=== PATIENT | male | born 1950 | race Caucasian/White ===

== ENCOUNTER 2016-11-27 08:34 | Day surgery (SDC) | payer OTHER ==
[2016-11-26 16:36] VITALS: BMI 26.4
[2016-11-27] VITALS (9 sets, daily range): BP systolic 108–133; BP diastolic 50–64; PULSE 77–85; RESP 7–23; Ht 185.4 cm; Wt 87.9 kg
[~2016-11-27] VITALS: Ht 185.4 cm; Wt 87.9 kg
[2016-11-27] MEDS ORDERED: CEFAZOLIN 2 GM/50 ML (PMX) 50 ML IVPB ONE (09:00)
[2016-11-27] MEDS ORDERED: LANT3I SC (09:11)
[2016-11-27] MEDS ORDERED: ASPI-664 PO (09:11)
[2016-11-27] MEDS ORDERED: LISI10TA2 PO (09:12)
[2016-11-27] MEDS ORDERED: SIMV20TA PO (09:12)
[2016-11-27] MEDS ORDERED: AMLO-147 PO (09:12)
[2016-11-27] MEDS ORDERED: METO-407 PO (09:13)
[2016-11-27] MEDS ORDERED: CLOP75TA27 PO (09:13)
[2016-11-27 09:53] LABS: ADD SCAN DIFF NO
[2016-11-27] MEDS ORDERED: INSULIN REGULAR 10 ML INJ IV ONE (10:00)
[2016-11-27 10:04] LABS: ADD UMIC YES; UR ASCORBIC ACID NEGATIVE (NEGATIVE); UR BACTERIA FEW /HPF (NONE SEEN); UR BILIRUBIN (Dip) NEGATIVE (NEGATIVE); UR BLOOD (Dip) NEGATIVE (NEGATIVE); UR CLARITY SLIGHTLY CLOUDY (CLEAR); UR COLOR AMBER (YELLOW); UR GLUCOSE (Dip) NEGATIVE (NEGATIVE); UR KETONES (Dip) NEGATIVE (NEGATIVE); UR LEUKOCYTE ESTERASE (Dip) NEGATIVE Leu/ul (NEGATIVE); UR NITRITE (Dip) NEGATIVE (NEGATIVE); UR RBC 1 /HPF (0-5); UR SPECIFIC GRAVITY (Dip) 1.019 (1.003-1.030); UR TOTAL PROTEIN (Dip) 2+ mg/dl (NEGATIVE); UR UROBILINOGEN (Dip) 1+ mg/dL (NEGATIVE)
[2016-11-27 10:08] LABS: BASOPHILS % 0.4 % (0.0-2.0); EOSINOPHILS # 0.1 10^3/ul (0.0-0.5); EOSINOPHILS % 0.7 % (0.0-7.0); HEMOGLOBIN 10.3 g/dl (14.0-18.0); LYMPHOCYTES # 1.7 10^3/ul (0.8-2.9); LYMPHOCYTES % 17.4 % (15.0-51.0); MEAN CORPUSCULAR HEMOGLOBIN 27.2 pg (29.0-33.0); MEAN CORPUSCULAR HGB CONC 33.2 g/dl (32.0-37.0); MEAN CORPUSCULAR VOLUME 81.8 fl (82.0-101.0); MEAN PLATELET VOLUME 10.4 fl (7.4-10.4); MONOCYTE # 0.6 10^3/ul (0.3-0.9); MONOCYTES % 6.2 % (0.0-11.0); NEUTROPHIL # 7.3 10^3/ul (1.6-7.5); NEUTROPHILS % 74.8 % (39.0-77.0); PLATELET COUNT 295 10^3/UL (140-415); RED BLOOD COUNT 3.79 10^6/ul (4.70-6.10); RED CELL DISTRIBUTION WIDTH 14.9 % (11.5-14.5); WHITE BLOOD COUNT 9.7 10^3/ul (4.8-10.8)
[2016-11-27 10:19] LABS: INR 1.13; PROTIME 14.5 Sec (12.2-14.2); PT RATIO 1.1
[2016-11-27 10:27] LABS: ALBUMIN 4.4 g/dl (3.3-4.9); ALBUMIN/GLOBULIN RATIO 1.22; BILIRUBIN,INDIRECT 0.4 mg/dl (0-1.1); BILIRUBIN,TOTAL 0.4 mg/dl (0.2-1.3)
[2016-11-27 10:29] LABS: CALCIUM 8.9 mg/dl (8.4-10.2); CREATININE 1.42 mg/dl (0.61-1.24); POTASSIUM 4.5 mmol/L (3.5-5.1)
[2016-11-27] MEDS ORDERED: SOD CHLORIDE 0.9% 1,000 ML IV SCH (10:30)
--- NOTE | 2016-11-27 12:00 | HPN ---
Date/Time of Note Date/Time of Note DATE: 11/27/16 TIME: 12:00 Interval H&P Admission Note Pt. seen H&P reviewed: No system changes KHRIS FLORES DPM Nov 27, 2016 12:00
[2016-11-27] MEDS ORDERED: METOCLOPRAMIDE 10 MG INJ ONE (12:38)
[2016-11-27] MEDS ORDERED: PROPOFOL 0 ML ONE (12:38)
[2016-11-27] MEDS ORDERED: FENTAnyl 50 MCG/ML VIAL ONE (12:38)
[2016-11-27] MEDS ORDERED: MIDAZOLAM 1 MG/ML 2 ML INJ ONE (12:38)
[2016-11-27] MEDS ORDERED: PROPOFOL 40 ML ONE (12:39)
[2016-11-27] MEDS ORDERED: POLYMYXIN/BACITRACIN 1L IRRIG IRR ONE (12:45)
[2016-11-27] MEDS ORDERED: MEPERIDINE 25 MG INJ IV PRN (13:30)
[2016-11-27] MEDS ORDERED: ONDANSETRON 4 MG INJ IV PRN (13:30)
[2016-11-27] MEDS ORDERED: DIPHENHYDRAMINE 50 MG INJ IV PRN (13:30)
[2016-11-27] MEDS ORDERED: HYDROmorphONE (0.2 MG/ML) 10ML SYG IV PRN ×3 (13:30)
[2016-11-27] MEDS ORDERED: OXYCODONE/ACETAMINOPHEN (5/325) TAB PO PRN ×2 (13:30)
[2016-11-27] MEDS ORDERED: METOCLOPRAMIDE 10 MG INJ IV PRN (13:30)
[2016-11-27] MEDS ORDERED: CEFAZOLIN 1 GM INJ ONE (13:33)
--- NOTE | 2016-11-27 15:34 | RADRPT ---
PROCEDURE: XR Foot. CLINICAL INDICATION: Pain. TECHNIQUE: AP, lateral and oblique views of the right foot was obtained. COMPARISON: None. FINDINGS: Status post distal metatarsal amputation of the second through fifth metatarsal bones . Surgical dr jett in place. No fracture, dislocation or other cortical irregularity. Surgical clips overlie the distal anterior lower leg. Postoperative changes of the anterior foot soft tissues. IMPRESSION: 1. Status post amputation of second through fifth distal metatarsal bones. Surgical drain in place. Postoperative changes of the soft tissues. RPTAT:AAJJ Physician George Date Time Electronically viewed and signed by Physician George on 11/27/2016 15:33 ALECIA/
== END 2016-11-27 16:10 | disposition home or self-care (01) ==
LOC: SDS 08:34
PROVIDERS: ATTEND Podiatrist Foot & Ankle Surgery
DX: E10.52 Type 1 diabetes mellitus with diabetic peripheral angiopathy with gangrene (principal); E10.40 Type 1 diabetes mellitus with diabetic neuropathy, unspecified
CPT/HCPCS: 28805; 73630; 80053; 81001; 82962; 85025; 85610; 85730; 88305; 88311; 97605; J0690; J2250; J2765; J3010; L3260; Z7512; Z7610; J1815

== ENCOUNTER 2016-12-02 11:00 | Inpatient (IN) | payer OTHER ==
[~2016-12-02] VITALS: Ht 185.4 cm; Wt 90.4 kg
[~2016-12-02 11:00] MED LIST: AMLO-147 PO; ASPI-664 PO; CLOP75TA27 PO; LANT3I SC; LISI10TA2 PO; METO-407 PO; SIMV20TA PO
[2016-12-02] MEDS ORDERED: CLINDAMYCIN 900 MG/D5W (PMX) 50 ML IVPB STA (11:21)
[2016-12-02] MEDS ORDERED: SODIUM CHLORIDE 0.9% 1L BAG IV* STA (11:21)
[2016-12-02] MEDS ORDERED: CEFEPIME 2GM/50 ML (PMX) 50 ML IVPB STA (11:21)
[2016-12-02] MEDS ORDERED: VANCOMYCIN 1 GM (PMX) 250 ML IVPB ONE (11:30)
--- NOTE | 2016-12-02 11:43 | ERA ---
ER Documentation Chief Complaint Date/Time DATE: 12/02/16 TIME: 11:39 Chief Complaint sent by pmd for eval, lt 4th toe amputation on 11/27/16 HPI 66-year-old male history of peripheral arterial disease and diabetes who presents to the emergency room complaining of infection to a recent wound to the left foot. The patient had a recent partial amputation of the left lower extremity by Dr. Solo on Friday. He had a wound VAC. However over the last several days he has noted increasing swelling and malodorous discharge. The wound care nurse at home remove the wound VAC today and noted a second wound to the plantar surface of the foot. The patient does describe numbness and tingling to the foot but no significant pain. There is a malodorous discharge and smell from the wound. He sent a picture to Dr. Guevara, his vascular surgeon who told him to go to the emergency room. ROS All systems reviewed and are negative except as per history of present illness. Medications Home Meds Reported Medications Clopidogrel Bisulfate (Clopidogrel) 75 Mg Tablet, 75 MG PO DAILY, #30 TAB 11/27/16 Metoprolol Tartrate* (Lopressor*) 100 Mg Tablet, 100 MG PO BID, #60 TAB 11/27/16 Amlodipine Besylate* (Amlodipine Besylate*) 10 Mg Tablet, 10 MG PO DAILY, #30 TAB 11/27/16 Simvastatin* (Zocor*) 20 Mg Tablet, 20 MG PO QHS, #30 TAB 11/27/16 Lisinopril* (Lisinopril*) 10 Mg Tablet, 10 MG PO DAILY, #30 TAB 11/27/16 Insulin Glargine* (Lantus*) 100 Unit/Ml Soln, 5 UNIT SC QHS, #1 VIAL 11/27/16 Aspirin (Low Dose Aspirin) 81 Mg Tablet.dr, 81 MG PO DAILY, #30 TAB 11/27/16 Allergies Allergies: Coded Allergies: No Known Drug Allergies (Unverified Allergy, Unknown, 12/02/16) PMhx/Soc History of Surgery: Yes (CABG 11 YRS AGO, LEFT LEG BYPASS SEPTEMBER 2016, R TOE AMPUTATION) Anesthesia Reaction: No Hx Neurological Disorder: No Hx Respiratory Disorders: No Hx Cardiac Disorders: Yes (HTN,CAD) Hx Psychiatric Problems: No Hx Miscellaneous Medical Probl: Yes (LEFT FOOT GANGRENE) Hx Alcohol Use: Yes (SOCIALLY) Hx Substance Use: No Hx Tobacco Use: No FmHx Family History: diabetes Physical Exam Vitals Vital Signs Date Time Temp Pulse Resp B/P Pulse Ox O2 Delivery O2 Flow Rate FiO2 12/02/16 11:04 98.8 86 18 132/68 98 Physical Exam General: Well developed, well nourished, no acute distress Head: Normocephalic, atraumatic. Eyes: Pupils equally reactive, EOM intact ENT: Moist mucous membranes Neck: Supple, no lymphadenopathy Respiratory: Lungs clear bilaterally, no distress Cardiovascular: RRR, no murmurs, rubs, or gallops Abdominal: Soft, non-tender, non-distended, no peritoneal signs : Deferred MSK: Partial amputation near the MCP joints of the third fourth and fifth toes of the left foot with exposed subcutaneous tissue and bone with malodorous discharge, a new ulcer is noted to the plantar surface of the foot approximately 1 cm deep Neurologic: Alert and oriented, moving all extremities, normal speech, no focal weakness, no cerebellar signs Skin: As documented above Psych: Normal mood Result Diagram: 12/02/16 1130 12/02/16 1130 Results 24 hrs Laboratory Tests Test 12/02/16 11:30 12/02/16 11:40 White Blood Count 12.610^3/ul Red Blood Count 3.6710^6/ul Hemoglobin 9.8g/dl Hematocrit 30.3% Mean Corpuscular Volume 82.6fl Mean Corpuscular Hemoglobin 26.7pg Mean Corpuscular Hemoglobin Concent 32.3g/dl Red Cell Distribution Width 15.1% Platelet Count 31444^3/UL Mean Platelet Volume 10.0fl Neutrophils % 73.7% Lymphocytes % 18.0% Monocytes % 6.7% Eosinophils % 0.6% Basophils % 0.4% Nucleated Red Blood Cells % 0.0/100WBC Neutrophils # 9.310^3/ul Lymphocytes # 2.310^3/ul Monocytes # 0.810^3/ul Eosinophils # 0.110^3/ul Basophils # 0.110^3/ul Nucleated Red Blood Cells # 0.010^3/ul Prothrombin Time 14.5Sec Prothrombin Time Ratio 1.1 INR International Normalized Ratio 1.13 Activated Partial Thromboplast Time 38.6Sec Sodium Level 140mmol/L Potassium Level 4.7mmol/L Chloride Level 96mmol/L Carbon Dioxide Level 26mmol/L Anion Gap 23 Blood Urea Nitrogen 20mg/dl Creatinine 1.38mg/dl Glucose Level 137mg/dl Lactic Acid Level 2.4mmol/L Calcium Level 9.0mg/dl Total Bilirubin 0.2mg/dl Direct Bilirubin 0.00mg/dl Indirect Bilirubin 0.2mg/dl Aspartate Amino Transf (AST/SGOT) 16IU/L Alanine Aminotransferase (ALT/SGPT) 14IU/L Alkaline Phosphatase 260IU/L C-Reactive Protein 17.9mg/dl Total Protein 8.0g/dl Albumin 4.1g/dl Globulin 3.90g/dl Albumin/Globulin Ratio 1.05 Erythrocyte Sedimentation Rate 120mm/Hr Current Medications Medications (Trade) Dose Ordered Sig/Jordon Route PRN Reason Start Time Stop Time Status Last Admin Dose Admin Sodium Chloride 2950 ml 2,950 ml BOLUS OVER 2 HOURS STAT IV* 12/02/16 11:21 12/02/16 11:24 DC 12/02/16 11:45 Cefepime HCl 50 ml @ 100 mls/hr ONCE STAT IVPB 12/02/16 11:21 12/02/16 11:50 DC 12/02/16 11:45 Vancomycin HCl 250 ml @ 125 mls/hr ONCE ONCE IVPB 12/02/16 11:30 12/02/16 13:29 DC 12/02/16 13:10 Clindamycin HCl/ Dextrose (Cleocin 900 Mg/ D5W (Pmx)) 50 ml @ 50 mls/hr ONCE STAT IVPB 12/02/16 11:21 12/02/16 12:20 DC 12/02/16 12:18 Ondansetron HCl (Zofran Inj) 4 mg BRIDGE ORDER PRN IV NAUSEA AND/OR VOMITING 12/02/16 14:00 12/03/16 13:59 Acetaminophen (Tylenol Tab) 650 mg ER BRIDGE PRN PO MILD PAIN/FEVER 12/02/16 14:00 12/03/16 13:59 Procedures/MDM EKG, MONITORS, & DIAGNOSTIC IMAGING: EKG: I reviewed and interpreted a 12-lead EKG. Rhythm: Normal sinus rhythm Ectopy: None Intervals: No abnormalities ST segments: No elevations or depressions T waves: No contiguous inversions Chest x-ray: I reviewed and interpreted a 1 view of the chest Mediastinum: No enlargement Cardiac silhouette: No cardiomegaly Airspace: Clear lung barragan bilaterally without evidence of pneumothorax Bones: No evidence of fracture X-ray left foot IMPRESSION: 1. Evidence of prior transmetatarsal amputation of the second through fifth metatarsals suggesting the possibility of osteomyelitis at the fifth metatarsal stump and possibly the fourth metatarsal stump, evaluation is slightly limited if there has been recent debridement in this region. Correlation with MRI is also recommended depending on the degree of clinical concern. 2. Soft tissue defect over the stumps and also suggestion of a plantar ulcer at the midfoot and possible subcutaneous air. 3. Atherosclerotic vascular calcifications. RPTAT: TT LAB INTERPRETATION: Leukocytosis and isolated lactic acid, mild renal insufficiency MEDICAL DECISION MAKING: The patient presents with what appears to be infected left foot status post surgical intervention on Friday. The patient has malodorous discharge and drainage and a new ulceration to the foot. This is concerning for poor healing wound likely secondary to the patient's diabetes and peripheral arterial disease. The patient will benefit from cultures, broad-spectrum antibiotics and inpatient hospitalization. ESR, CRP, x-ray will also be initiated though high likelihood of osteomyelitis given recent amputation. ER COURSE: Patient given 30 cc/kg bolus of saline he was given vancomycin, Zosyn, clindamycin. Blood cultures and wound culture collected. Dr. Solo and Dr. Crowder notified. The patient only has 1 out of 4 Sirs criteria therefore this is not consistent with sepsis or severe sepsis. The patient has an isolated lactic acid elevation likely secondary to infection. Regardless, the patient received appropriate fluid bolus, broad-spectrum antibiotics. He does not require repeat volume assessment given that he does not meet severe sepsis or septic shock criteria. The patient is stable and will benefit from medical surgical admission. I kept the patient and/or family informed of laboratory and diagnostic imaging results throughout the emergency room course. DISPOSITION PLAN: Medical surgical admission for infected left foot wound. CONSULTATION: Accepting care team and consultations: I discussed the current laboratory data, diagnostic imaging and emergency care provided. Admitting team: Dr. Adamson Admitting team indication: Insurance directed Consulting services: Podiatry Dr. Solo, vascular surgery Dr. Crowder notified. Departure Diagnosis: Primary Impression: Left foot infection Additional Impressions: Wound infection Lactic acidosis Osteomyelitis of left foot Qualified Code: M86.9 - Osteomyelitis of left foot, unspecified type Condition: BOB Dobbs MD Dec 02, 2016 11:43
[2016-12-02 11:49] LABS: ADD SCAN DIFF NO
--- NOTE | 2016-12-02 12:08 | RADRPT ---
PROCEDURE: XR Chest. CLINICAL INDICATION: Cough. Sepsis. TECHNIQUE: Single frontal view. COMPARISON: None. FINDINGS: The lungs are clear. The heart size is normal. There are sternal wires and mediastinal clips. There is no pleural effusion. There is no pneumothorax. IMPRESSION: 1. Previous median sternotomy. 2. Otherwise normal chest x-ray. RPTAT: QQ .Curry Bobo MD, MD Date Time Electronically viewed and signed by .Curry Bobo MD, MD on 12/02/2016 12:08 .R/
[2016-12-02 12:09] LABS: INR 1.13; PROTIME 14.5 Sec (12.2-14.2); PT RATIO 1.1
[2016-12-02 12:10] LABS: PARTIAL THROMBOPLASTIN TIME 38.6 Sec (25.0-35.0)
[2016-12-02 12:15] LABS: ALBUMIN 4.1 g/dl (3.3-4.9); ALBUMIN/GLOBULIN RATIO 1.05; BILIRUBIN,INDIRECT 0.2 mg/dl (0-1.1); BILIRUBIN,TOTAL 0.2 mg/dl (0.2-1.3); CREATININE 1.38 mg/dl (0.61-1.24); POTASSIUM 4.7 mmol/L (3.5-5.1)
[2016-12-02 12:19] LABS: BASOPHIL # 0.1 10^3/ul (0.0-0.1); BASOPHILS % 0.4 % (0.0-2.0); EOSINOPHILS # 0.1 10^3/ul (0.0-0.5); EOSINOPHILS % 0.6 % (0.0-7.0); HEMATOCRIT 30.3 % (42.0-52.0); HEMOGLOBIN 9.8 g/dl (14.0-18.0); LYMPHOCYTES # 2.3 10^3/ul (0.8-2.9); MEAN CORPUSCULAR HEMOGLOBIN 26.7 pg (29.0-33.0); MEAN CORPUSCULAR HGB CONC 32.3 g/dl (32.0-37.0); MEAN CORPUSCULAR VOLUME 82.6 fl (82.0-101.0); MONOCYTE # 0.8 10^3/ul (0.3-0.9); MONOCYTES % 6.7 % (0.0-11.0); NEUTROPHIL # 9.3 10^3/ul (1.6-7.5); NEUTROPHILS % 73.7 % (39.0-77.0); PLATELET COUNT 329 10^3/UL (140-415); RED BLOOD COUNT 3.67 10^6/ul (4.70-6.10); RED CELL DISTRIBUTION WIDTH 15.1 % (11.5-14.5); WHITE BLOOD COUNT 12.6 10^3/ul (4.8-10.8)
--- NOTE | 2016-12-02 12:39 | RADRPT ---
PROCEDURE: XR Foot. CLINICAL INDICATION: Foot pain. Possible sepsis TECHNIQUE: Three views of the left foot are available for review. COMPARISON: 11/27/2016. FINDINGS: The wound vac has been removed. The patient has undergone prior transmetatarsal amputation at the s econd through fifth rays. Lucency and cortical irregularity seen at the fifth metatarsal stump and to a lesser extent at the fourth metatarsal stump suggesting the possibility of osteomyelitis. The remaining sinuses demonstrate grossly intact cortical surfaces. There is a soft tissue defect over t he stump as well. Atherosclerotic vascular calcifications are present. There is a small amount of low density foci in the plantar soft tissues, subcutaneous air cannot be excluded. There is also a possible ulcer plantarly. Surgical clips are seen about the foot. There is marked soft tissue swell ing. IMPRESSION: 1. Evidence of prior transmetatarsal amputation of the second through fifth metatarsals suggesting the possibility of osteomyelitis at the fifth metatarsal stump and possibly the fourth metatarsal st ump, evaluation is slightly limited if there has been recent debridement in this region. Correlation with MRI is also recommended depending on the degree of clinical concern. 2. Soft tissue defect over the stumps and also suggestion of a plantar ulcer at the midfoot and pos sible subcutaneous air. 3. Atherosclerotic vascular calcifications. RPTAT: TT .Aj Shaw MD, Date Time Electronically viewed and signed by .Aj Shaw MD, on 12/02/2016 12:39 .d/
[2016-12-02 12:57] LABS: C-REACTIVE PROTEIN 17.9 mg/dl (0.0-0.9)
[2016-12-02] MEDS ORDERED: ACETAMINOPHEN 325 MG TAB PO PRN ×2 (14:00→15:30)
[2016-12-02] MEDS ORDERED: ONDANSETRON 4 MG INJ IV PRN ×2 (14:00→15:30)
[2016-12-02] MEDS ORDERED: ZOLPIDEM 5 MG TAB PO PRN (15:30)
[2016-12-02] MEDS ORDERED: NACL 0.9% 3 ML SYG IV SCH (15:30)
[2016-12-02] MEDS ORDERED: morphine 2 MG INJ IV PRN (15:30)
[2016-12-02] MEDS: SOD CHLORIDE 0.9% 1,000 ML IV SCH (15:52)
[2016-12-02] MEDS ORDERED: GLUCOSE GEL 15 GRAM TUBE BUCCAL PRN (16:00)
[2016-12-02] MEDS ORDERED: GLUCAGON 1 MG INJ IM PRN (16:00)
[2016-12-02] MEDS ORDERED: DEXTROSE 50% 50 ML SYRINGE IV PRN ×2 (16:00)
[2016-12-02] MEDS ORDERED: GLUCOSE GEL 15 GRAM TUBE PO PRN ×2 (16:00)
[2016-12-02 16:08] VITALS: TEMP 98.7
[2016-12-02 16:15] VITALS: BP 140/63; PULSE 93; RESP 16
--- NOTE | 2016-12-02 17:40 | HP ---
Date/Time of Note Date/Time of Note DATE: 12/02/16 TIME: 17:33 Assessment/Plan VTE Prophylaxis VTE Prophylaxis Intervention: contraindicated VTE Contraindication Reason: peripheral vascular disease Assessment/Plan Chief Complaint/Hosp Course Assessment and plan 1. Left lower extremity gangrene vs abscess. Stable consult podiatry and vascular surgery. 2. Left foot DFI. Restart wound care/wound VAC when ok w podiatry 3. Chr PAD; ho bypass. Continue risk factor modification, aspirin 4. Chr CAD/ old DC?/ CABG status. Stable continue risk factor modification 5. Deconditioning; PT nwb left foot 6. Chr Dm/metabolic syndrome 7. Ckd 8. Rt second toe amputation status Problems: HPI/ROS Admit Date/Time Admit Date/Time Dec 02, 2016 at 13:33 Hx of Present Illness 66-year-old gentleman who had surgery last week on his left leg. Had home health and wound VAC therapy. This morning wound care eval was done at home. Wound VAC was being changed. Unfortunately his wound appears to have more foul- smelling discharge. No evidence of toxicity sepsis. ER: Stable vital signs. ROS Constitutional: no complaints Respiratory: cough (Chronic nonproductive) Cardiovascular: no complaints Gastrointestinal: other (Possible constipation. Last BM with diarrhea a few days ago.) Genitourinary: no complaints Musculoskeletal: other (Left leg with foul-smelling discharge. No change in moderate pain. No edema.) Neurologic: no complaints Endocrine: no complaints, other (Chronic diabetes/dyslipidemia/metabolic syndrome) Psychological: no complaints Additional Comments No hematochezia melena hematuria PMH/Family/Social Past Medical History Cataracts Diabetic foot infection PAD status post angioplasty Right second toe infection amputation status Chronic kidney disease Medical History: coronary artery disease (Possible old DC status. Positive CABG), diabetes, hypertension, other (Left carotid stenosis) Past Surgical History Cataract Past Surgical Hx: coronary bypass surgery, other (Carotid left) Family History Significant Family History: other (No history of early coronary artery disease or stroke) Social History Alcohol Use: none Smoking Status: Never smoker Exam/Review of Systems Vital Signs Vitals Vital Signs Date Time Temp Pulse Resp B/P Pulse Ox O2 Delivery O2 Flow Rate FiO2 12/02/16 16:08 98.7 80 18 145/74 98 Room Air Labs Result Diagram: 12/02/16 1130 12/02/16 1130 Medications Medications Current Medications Aspirin (Halfprin) 81 mg DAILY PO ; Start 12/03/16 at 09:00 Clopidogrel Bisulfate (plaVIX) 75 mg DAILY PO ; Start 12/03/16 at 09:00 Insulin Glargine (Lantus) 5 unit QHS SC ; Start 12/02/16 at 21:00 Atorvastatin Calcium 10 mg 10 mg DAILY@21 PO ; Start 12/02/16 at 21:00 Sodium Chloride (NS) 1,000 ml @ 100 mls/hr Q10H IV Last administered on t 15:52; Admin Dose 100 MLS/HR; Start 12/02/16 at 15:13 Ondansetron HCl (Zofran Inj) 4 mg Q6H PRN IV NAUSEA AND/OR VOMITING; Start 12/02 at 15:30 Acetaminophen (Tylenol Tab) 650 mg Q6H PRN PO PAIN LEVEL 1-3 OR FEVER; Start at 15:30 Oxycodone/ Acetaminophen (Percocet (5/ 325)) 1 tab Q6H PRN PO MODERATE PAIN LEVEL 4-6; Start 12/02/16 at 15:30 Morphine Sulfate (morphine) 2 mg Q4H PRN IV SEVERE PAIN LEVEL 7-10; Start at 15:30 Docusate Sodium (Colace) 100 mg Q12H PRN PO CONSTIPATION; Start 12/02/16 at 15: 30 Zolpidem Tartrate (Ambien) 5 mg QHS PRN PO SLEEP; Start 12/02/16 at 15:30 Famotidine (Pepcid) 20 mg Q12 PO ; Start 12/02/16 at 21:00 Miscellaneous Information 1 ea NOTE XX ; Start 12/02/16 at 16:00 Glucose (Glutose) 15 gm Q15M PRN PO DECREASED GLUCOSE; Start 12/02/16 at 16:00 Glucose (Glutose) 22.5 gm Q15M PRN PO DECREASED GLUCOSE; Start 12/02/16 at 16:00 Dextrose (D50w Syringe) 25 ml Q15M PRN IV DECREASED GLUCOSE; Start 12/02/16 at 16:00 Dextrose (D50w Syringe) 50 ml Q15M PRN IV DECREASED GLUCOSE; Start 12/02/16 at 16:00 Glucagon (Glucagen) 1 mg Q15M PRN IM DECREASED GLUCOSE; Start 12/02/16 at 16:00 Glucose (Glutose) 15 gm Q15M PRN BUCCAL DECREASED GLUCOSE; Start 12/02/16 at 16: 00 NIMA ROD MD Dec 02, 2016 17:39
[2016-12-02] MEDS ORDERED: VANCOMYCIN IV PER PHARMACY XX SCH (18:00)
[2016-12-02] MEDS ORDERED: ALBUTEROL 18 GM INHALER INH PRN (18:00)
[2016-12-02] MEDS: POLYETHYLENE GLYCOL 17 GM PACKET PO SCH (18:14)
[2016-12-02] MEDS: OXYCODONE/ACETAMINOPHEN (5/325) TAB PO PRN (18:22)
[2016-12-02] MEDS: INSULIN ASPART [NOVOLOG] 3 ML PEN SC SCH ×2 (18:25→20:49)
[2016-12-02] MEDS: FAMOTIDINE 20 MG TAB PO SCH (20:41)
[2016-12-02] MEDS: LACTOBACILLUS RHAMNOSUS CAP PO SCH (20:41)
[2016-12-02] MEDS: ATORVASTATIN 10 MG TAB PO SCH (20:41)
[2016-12-02] MEDS: FERROUS SULFATE (EC) 325 MG TAB PO SCH (20:41)
[2016-12-02 20:48] VITALS: BP 129/60; RESP 18
[2016-12-02] MEDS: CEFEPIME 2GM/50 ML (PMX) 50 ML IVPB SCH (20:52)
[2016-12-02] MEDS: INSULIN GLARGINE [LANtus] 3 ML PEN SC SCH (20:52)
[2016-12-02] MEDS ORDERED: FAMOTIDINE 20 MG TAB PO SCH (21:00)
[2016-12-02] MEDS ORDERED: VANCOMYCIN 750 MG in SOD CHLORIDE 0.9% 150 ML IVPB SCH (22:00)
[2016-12-03 02:42] VITALS: Ht 185.4 cm; Wt 90.4 kg
[2016-12-03 04:58] LABS: ADD SCAN DIFF NO
[2016-12-03 05:02] LABS: BASOPHILS % 0.4 % (0.0-2.0); EOSINOPHILS # 0.1 10^3/ul (0.0-0.5); EOSINOPHILS % 1.4 % (0.0-7.0); HEMATOCRIT 26.5 % (42.0-52.0); HEMOGLOBIN 8.4 g/dl (14.0-18.0); LYMPHOCYTES # 1.6 10^3/ul (0.8-2.9); LYMPHOCYTES % 15.8 % (15.0-51.0); MEAN CORPUSCULAR HEMOGLOBIN 25.8 pg (29.0-33.0); MEAN CORPUSCULAR HGB CONC 31.7 g/dl (32.0-37.0); MEAN CORPUSCULAR VOLUME 81.3 fl (82.0-101.0); MEAN PLATELET VOLUME 9.8 fl (7.4-10.4); MONOCYTE # 0.6 10^3/ul (0.3-0.9); MONOCYTES % 6.3 % (0.0-11.0); NEUTROPHIL # 7.4 10^3/ul (1.6-7.5); NEUTROPHILS % 75.5 % (39.0-77.0); PLATELET COUNT 272 10^3/UL (140-415); RED BLOOD COUNT 3.26 10^6/ul (4.70-6.10); RED CELL DISTRIBUTION WIDTH 15.4 % (11.5-14.5); WHITE BLOOD COUNT 9.8 10^3/ul (4.8-10.8)
[2016-12-03 05:26] LABS: IRON 10 ug/dl (35-150)
[2016-12-03 05:29] LABS: ALBUMIN 3.3 g/dl (3.3-4.9); BILIRUBIN,INDIRECT 0.1 mg/dl (0-1.1); BILIRUBIN,TOTAL 0.1 mg/dl (0.2-1.3); CALCIUM 8.2 mg/dl (8.4-10.2); CHOL/HDL RATIO 4.3 RATIO; CREATININE 1.22 mg/dl (0.61-1.24); MAGNESIUM 1.9 mg/dl (1.7-2.5); PHOSPHORUS 3.2 mg/dl (2.5-4.9); POTASSIUM 4.3 mmol/L (3.5-5.1); TOTAL PROTEIN 6.6 g/dl (6.1-8.1)
[2016-12-03 05:36] LABS: TOTAL IRON BINDING CAPACITY 116 ug/dl (241-421)
[2016-12-03] MEDS: SOD CHLORIDE 0.9% 1,000 ML IV SCH ×4 (05:49→22:10)
[2016-12-03 05:59] LABS: THYROID STIMULATING HORMONE 7.13 MIU/L (0.465-4.680)
[2016-12-03] MEDS: INSULIN ASPART [NOVOLOG] 3 ML PEN SC SCH ×4 (07:44→20:40)
[2016-12-03 08:03] VITALS: BP 155/72; RESP 18
[2016-12-03] MEDS: ASPIRIN (EC) 81 MG TAB PO SCH (08:29)
[2016-12-03] MEDS: LACTOBACILLUS RHAMNOSUS CAP PO SCH ×2 (08:29→20:36)
[2016-12-03] MEDS: FERROUS SULFATE (EC) 325 MG TAB PO SCH ×2 (08:29→20:36)
[2016-12-03] MEDS: CLOPIDOGREL 75 MG TAB PO SCH (08:29)
[2016-12-03] MEDS: POLYETHYLENE GLYCOL 17 GM PACKET PO SCH (08:30)
[2016-12-03] MEDS: COLLAGENASE 30 GM TUBE TOP SCH (08:31)
[2016-12-03] MEDS: CEFEPIME 2GM/50 ML (PMX) 50 ML IVPB SCH ×2 (08:32→20:35)
[2016-12-03] MEDS ORDERED: PENDING SANTYL ORDER FOR WOUND CARE XX PRN (09:00)
--- NOTE | 2016-12-03 10:18 | RADRPT ---
PROCEDURE: XR Chest. CLINICAL INDICATION: Preop infected foot wound TECHNIQUE: PA and Lateral views of the chest were obtained. COMPARISON: 12/02/2016 FINDINGS: The heart is not enlarged. Calcification in the aortic arch. The patient is likely status post CAB G with sternal wires and small epicardial pacing leads present. ECG leads projected over the chest. There is minimal prominence of the lung interstitium likely minimal chronic changes. Likely minimal left apical pleuroparenchymal fibrotic change. No signs of pleural fluid or pneumothorax are seen. T he osseous structures and soft tissues are unremarkable. IMPRESSION: No evidence for active cardiopulmonary disease. Please see above. RPTAT: HJES .Ronan Duran MD, MD Date Time Electronically viewed and signed by .Ronan Duran MD, on 12/03/2016 10:18 .S/
[2016-12-03] MEDS: VANCOMYCIN 1 GM in NS 250 ML IVPB SCH ×2 (10:22→22:10)
--- NOTE | 2016-12-03 10:37 | PN ---
Date/Time of Note Date/Time of Note DATE: 12/03/16 TIME: 10:35 Assessment/Plan VTE Prophylaxis VTE Prophylaxis Intervention: LMWH Assessment/Plan Chief Complaint/Hosp Course Subjective: No events Objective: Vital signs stable Physical exam No pallor Reg Clear Benign No edema. Probable neuropathy. Rt heel C/D/I A/P: 1. Lt lwr ext gangrene vs abscess. Stable consulted podiatry and vascular surgery. 2. Lt foot DFI. Restart wound care/wound VAC when ok w podiatry 3. Chr PAD; ho bypass. Cont risk factor modification, asa? 4. Chr CAD/ old AL?/ CABG status. Stable cont risk factor modification 5. Deconditioning; PT nwb left foot 6. Chr Dm/metabolic syndrome 7. Ckd 8. Rt second toe amputation status 9. Iron deficiency anemia, start iron 10. Hypothyroidism, start treatment Problems: Exam/Review of Systems Vital Signs Vitals Vital Signs Date Time Temp Pulse Resp B/P Pulse Ox O2 Delivery O2 Flow Rate FiO2 12/03/16 08:03 98.6 88 18 155/72 93 12/02/16 16:15 Room Air Intake and Output 12/02/16 12/02/16 12/03/16 15:00 23:00 07:00 Intake Total 3050 ml 300 ml 1470 ml Output Total 1000 ml Balance 3050 ml 300 ml 470 ml Results Result Diagram: 12/03/16 0415 12/03/16 0415 Results 24 hrs Laboratory Tests Test 12/02/16 11:30 12/02/16 11:40 12/02/16 13:21 12/02/16 15:20 White Blood Count 12.6 #H Red Blood Count 3.67 L Hemoglobin 9.8 L Hematocrit 30.3 L Mean Corpuscular Volume 82.6 Mean Corpuscular Hemoglobin 26.7 L Mean Corpuscular Hemoglobin Concent 32.3 Red Cell Distribution Width 15.1 H Platelet Count 329 Mean Platelet Volume 10.0 Neutrophils % 73.7 Lymphocytes % 18.0 Monocytes % 6.7 Eosinophils % 0.6 Basophils % 0.4 Nucleated Red Blood Cells % 0.0 Neutrophils # 9.3 H Lymphocytes # 2.3 Monocytes # 0.8 Eosinophils # 0.1 Basophils # 0.1 Nucleated Red Blood Cells # 0.0 Prothrombin Time 14.5 H Prothrombin Time Ratio 1.1 INR International Normalized Ratio 1.13 Activated Partial Thromboplast Time 38.6 H Sodium Level 140 Potassium Level 4.7 Chloride Level 96 L Carbon Dioxide Level 26 Anion Gap 23 H Blood Urea Nitrogen 20 Creatinine 1.38 H Glucose Level 137 Lactic Acid Level 2.4 H 2.6 H 1.6 Calcium Level 9.0 Total Bilirubin 0.2 Direct Bilirubin 0.00 Indirect Bilirubin 0.2 Aspartate Amino Transf (AST/SGOT) 16 Alanine Aminotransferase (ALT/SGPT) 14 Alkaline Phosphatase 260 H C-Reactive Protein 17.9 H Total Protein 8.0 Albumin 4.1 Globulin 3.90 H Albumin/Globulin Ratio 1.05 Erythrocyte Sedimentation Rate 120 H Test 12/02/16 17:35 12/02/16 20:43 12/03/16 03:36 12/03/16 04:15 Bedside Glucose 158 201 176 White Blood Count 9.8 # Red Blood Count 3.26 L Hemoglobin 8.4 L Hematocrit 26.5 L Mean Corpuscular Volume 81.3 L Mean Corpuscular Hemoglobin 25.8 L Mean Corpuscular Hemoglobin Concent 31.7 L Red Cell Distribution Width 15.4 H Platelet Count 272 Mean Platelet Volume 9.8 Neutrophils % 75.5 Lymphocytes % 15.8 Monocytes % 6.3 Eosinophils % 1.4 Basophils % 0.4 Nucleated Red Blood Cells % 0.0 Neutrophils # 7.4 Lymphocytes # 1.6 Monocytes # 0.6 Eosinophils # 0.1 Basophils # 0.0 Nucleated Red Blood Cells # 0.0 Sodium Level 136 Potassium Level 4.3 Chloride Level 99 Carbon Dioxide Level 22 Anion Gap 19 H Blood Urea Nitrogen 17 Creatinine 1.22 Glucose Level 168 Hemoglobin A1c 9.1 H Calcium Level 8.2 L Phosphorus Level 3.2 Magnesium Level 1.9 Iron Level 10 L Total Iron Binding Capacity 116 L Percent Iron Saturation 9 L Ferritin 398.0 H Total Bilirubin 0.1 L Direct Bilirubin 0.00 Indirect Bilirubin 0.1 Aspartate Amino Transf (AST/SGOT) 13 L Alanine Aminotransferase (ALT/SGPT) 17 Alkaline Phosphatase 209 H Total Protein 6.6 # Albumin 3.3 Globulin 3.30 H Albumin/Globulin Ratio 1.00 Triglycerides Level 87 Cholesterol Level 79 L LDL Cholesterol, Calculated 44 HDL Cholesterol 18 L Cholesterol/HDL Ratio 4.3 Thyroid Stimulating Hormone (TSH) 7.130 H Test 12/03/16 07:41 Bedside Glucose 178 Medications Medications Current Medications Aspirin (Halfprin) 81 mg DAILY PO Last administered on 12/03/16 08:29; Admin Dose 81 MG; Start 12/03/16 at 09:00 Clopidogrel Bisulfate (plaVIX) 75 mg DAILY PO Last administered on 12/03/16 08: 29; Admin Dose 75 MG; Start 12/03/16 at 09:00 Insulin Glargine (Lantus) 5 unit QHS SC Last administered on 12/02/16 20:52; Admin Dose 5 UNIT; Start 12/02/16 at 21:00 Atorvastatin Calcium 10 mg 10 mg DAILY@21 PO Last administered on 12/02/16 20: 41; Admin Dose 10 MG; Start 12/02/16 at 21:00 Sodium Chloride (NS) 1,000 ml @ 100 mls/hr Q10H IV Last administered on 05:49; Admin Dose 100 MLS/HR; Start 12/02/16 at 15:13 Ondansetron HCl (Zofran Inj) 4 mg Q6H PRN IV NAUSEA AND/OR VOMITING; Start 12/02 at 15:30 Acetaminophen (Tylenol Tab) 650 mg Q6H PRN PO PAIN LEVEL 1-3 OR FEVER; Start at 15:30 Oxycodone/ Acetaminophen (Percocet (5/ 325)) 1 tab Q6H PRN PO MODERATE PAIN LEVEL 4-6 Last administered on 12/02/16 18:22; Admin Dose 1 TAB; Start 12/02/16 at 15:30 Morphine Sulfate (morphine) 2 mg Q4H PRN IV SEVERE PAIN LEVEL 7-10; Start at 15:30 Docusate Sodium (Colace) 100 mg Q12H PRN PO CONSTIPATION; Start 12/02/16 at 15: 30 Zolpidem Tartrate (Ambien) 5 mg QHS PRN PO SLEEP; Start 12/02/16 at 15:30 Miscellaneous Information 1 ea NOTE XX ; Start 12/02/16 at 16:00 Glucose (Glutose) 15 gm Q15M PRN PO DECREASED GLUCOSE; Start 12/02/16 at 16:00 Glucose (Glutose) 22.5 gm Q15M PRN PO DECREASED GLUCOSE; Start 12/02/16 at 16:00 Dextrose (D50w Syringe) 25 ml Q15M PRN IV DECREASED GLUCOSE; Start 12/02/16 at 16:00 Dextrose (D50w Syringe) 50 ml Q15M PRN IV DECREASED GLUCOSE; Start 12/02/16 at 16:00 Glucagon (Glucagen) 1 mg Q15M PRN IM DECREASED GLUCOSE; Start 12/02/16 at 16:00 Glucose (Glutose) 15 gm Q15M PRN BUCCAL DECREASED GLUCOSE; Start 12/02/16 at 16: 00 Famotidine (Pepcid) 20 mg HS PO Last administered on 12/02/16 20:41; Admin Dose 20 MG; Start 12/02/16 at 21:00 Ferrous Sulfate 325 mg 325 mg BID PO Last administered on 12/03/16 08:29; Admin Dose 325 MG; Start 12/02/16 at 21:00 Cefepime HCl (Maxipime 2gm/50 ml (Pmx)) 50 ml @ 100 mls/hr Q12 IVPB Last administered on 12/03/16 08:32; Admin Dose 100 MLS/HR; Start 12/02/16 at 21:00 Lactobacillus Acidophilus/ Rhamnosus (Culturelle) 1 cap BID PO Last administered on 12/03/16 08:29; Admin Dose 1 CAP; Start 12/02/16 at 21:00 Polyethylene Glycol (Miralax) 17 gm DAILY PO Last administered on 12/03/16 08: 30; Admin Dose 17 GM; Start 12/02/16 at 18:00 Collagenase 1 applic 1 applic DAILY TOP Last administered on 12/03/16 08:31; Admin Dose 1 APPLIC; Start 12/03/16 at 09:00 Vancomycin HCl (Vancocin) 250 ml @ 125 mls/hr Q12H IVPB Last administered on 10:22; Admin Dose 125 MLS/HR; Start 12/03/16 at 10:00 NIMA ROD MD Dec 03, 2016 10:36
[2016-12-03] MEDS: SOD FERRIC GLUC COMPLX 125 MG in SOD CHLORIDE 0.9% 100 ML IVPB SCH ×3 (11:00→12:41)
--- NOTE | 2016-12-03 12:36 | CONS ---
Date/Time of Note Date/Time of Note DATE: 12/03/16 TIME: 12:33 Assessment/Plan Assessment/Plan Problems: (1) Peripheral vascular disease (2) Lower extremity edema (3) Toe gangrene (4) Lactic acidosis Status: Acute (5) Wound infection Status: Acute (6) Osteomyelitis of left foot Status: Acute Qualifiers: Qualified Code: M86.9 - Osteomyelitis of left foot, unspecified type (7) Left foot infection Status: Acute Additional Assessment/Plan This is a 66-year-old male patient with a recent amputation of the left second through fifth toes and metatarsal head resections; open amputation with application of wound VAC. Patient's prognosis is guarded. 1. Patient will be scheduled for surgical debridement of the left foot and exploration of new wound on the plantar aspect of the left foot 2. Patient to continue to have Santyl ointment with daily dressing changes 3. Hold wound VAC application at this time 4. Nonweightbearing left foot Patient will be followed in-house. Thank you again for involving me in the care of this patient. If you have any questions regarding this case, please feel free to contact me at pager: or reach me at mobile: [phone]. Consultation Date/Type/Reason Admit Date/Time Dec 02, 2016 at 13:33 Date of Consultation: Dec 03, 2016 Type of Consultation: Foot and ankle surgery Reason for Consultation Evaluation left foot open wound Hx of Present Illness Thank you very much for involving me in the care of this patient. As you very well know, this is a 66-year-old male patient who was admitted to the hospital for left foot open wound. Past medical history is significant for recent amputation of the second through the fifth toes, peripheral vascular disease, diabetes mellitus, peripheral neuropathy, previous left foot gangrene. I was consulted to evaluate and treat possible infected open wound of the left foot. Patient reports that yesterday as the home nurse was changing the wound VAC, she noticed that there is a new wound on the bottom of the left foot and she got concerned. Patient contacted his vascular surgeon who told him to go to the emergency room to be admitted to the hospital. Patient is currently on IV antibiotics and the wound VAC has been removed. Patient denies any pain, denies fever, chills nausea or vomiting. Constitutional: improved, no complaints Eyes: no complaints ENT: no complaints Respiratory: cough (Chronic nonproductive) Cardiovascular: no complaints Gastrointestinal: other (Possible constipation. Last BM with diarrhea a few days ago.) Genitourinary: no complaints Musculoskeletal: other (Left leg with foul-smelling discharge. No change in moderate pain. No edema.) Neurologic: no complaints Psychological: no complaints Past Medical History As per history of present illness. Medical History: coronary artery disease (Possible old [place] status. Positive CABG), diabetes, hypertension, other (Left carotid stenosis) Past Surgical History As per history of present illness. Past Surgical Hx: coronary bypass surgery, other (Carotid left) Social History As per history of present illness. Alcohol Use: none Smoking Status: Never smoker Exam/Review of Systems Vital Signs Vitals Vital Signs Date Time Temp Pulse Resp B/P Pulse Ox O2 Delivery O2 Flow Rate FiO2 12/03/16 08:03 98.6 88 18 155/72 93 12/02/16 16:15 Room Air Intake and Output 12/02/16 12/02/16 12/03/16 15:00 23:00 07:00 Intake Total 3050 ml 300 ml 1470 ml Output Total 1000 ml Balance 3050 ml 300 ml 470 ml Exam General appearance: Patient is well developed; appears to be in no acute distress sitting comfortably in the exam chair. Gait is antalgic Vascular exam: Pedal pulses: weakly palpable bilateral feet; CFT: Normal on right foot toes; status post second through the fifth toe amputation on the left foot; TG: normal bilateral lower extremity; Edema: There is edema of the left foot noted; VV: none noted on exam Neurological exam: Protective sensation is diminished to sharp, dull, vibratory and temperature stimuli bilaterally. Deep tendon reflexes are normal bilaterally. Negative Tinel sign Dermatological exam: Open wound present from surgery on the left foot involving the second through the fifth metatarsal areas. Second open wound present on the plantar left foot measuring 5 mm in diameter. There is no erythema noted and no pus or bleeding present. Malodor noted. There is necrotic tissue at the base of the amputation site. Skin flap noted from the dorsal aspect of the previous second toe which appears to be viable. No erythema noted on lower extremity exam Musculoskeletal exam: Status post amputation of second through fifth toes and second through fifth metatarsal heads, open amputation. Muscle power is 5/5 bilateral lower extremity Imaging: Imaging reviewed Results Result Diagram: 12/03/16 0415 12/03/16 0415 Results 24 hrs Laboratory Tests Test 12/02/16 13:21 12/02/16 15:20 12/02/16 17:35 12/02/16 20:43 Lactic Acid Level 2.6 H 1.6 Bedside Glucose 158 201 Test 12/03/16 03:36 12/03/16 04:15 12/03/16 07:41 12/03/16 11:51 Bedside Glucose 176 178 237 H White Blood Count 9.8 # Red Blood Count 3.26 L Hemoglobin 8.4 L Hematocrit 26.5 L Mean Corpuscular Volume 81.3 L Mean Corpuscular Hemoglobin 25.8 L Mean Corpuscular Hemoglobin Concent 31.7 L Red Cell Distribution Width 15.4 H Platelet Count 272 Mean Platelet Volume 9.8 Neutrophils % 75.5 Lymphocytes % 15.8 Monocytes % 6.3 Eosinophils % 1.4 Basophils % 0.4 Nucleated Red Blood Cells % 0.0 Neutrophils # 7.4 Lymphocytes # 1.6 Monocytes # 0.6 Eosinophils # 0.1 Basophils # 0.0 Nucleated Red Blood Cells # 0.0 Sodium Level 136 Potassium Level 4.3 Chloride Level 99 Carbon Dioxide Level 22 Anion Gap 19 H Blood Urea Nitrogen 17 Creatinine 1.22 Glucose Level 168 Hemoglobin A1c 9.1 H Calcium Level 8.2 L Phosphorus Level 3.2 Magnesium Level 1.9 Iron Level 10 L Total Iron Binding Capacity 116 L Percent Iron Saturation 9 L Ferritin 398.0 H Total Bilirubin 0.1 L Direct Bilirubin 0.00 Indirect Bilirubin 0.1 Aspartate Amino Transf (AST/SGOT) 13 L Alanine Aminotransferase (ALT/SGPT) 17 Alkaline Phosphatase 209 H Total Protein 6.6 # Albumin 3.3 Globulin 3.30 H Albumin/Globulin Ratio 1.00 Triglycerides Level 87 Cholesterol Level 79 L LDL Cholesterol, Calculated 44 HDL Cholesterol 18 L Cholesterol/HDL Ratio 4.3 Thyroid Stimulating Hormone (TSH) 7.130 H Medications Medications Current Medications Aspirin (Halfprin) 81 mg DAILY PO Last administered on 12/03/16 08:29; Admin Dose 81 MG; Start 12/03/16 at 09:00 Clopidogrel Bisulfate (plaVIX) 75 mg DAILY PO Last administered on 12/03/16 08: 29; Admin Dose 75 MG; Start 12/03/16 at 09:00 Insulin Glargine (Lantus) 5 unit QHS SC Last administered on 12/02/16 20:52; Admin Dose 5 UNIT; Start 12/02/16 at 21:00 Atorvastatin Calcium 10 mg 10 mg DAILY@21 PO Last administered on 12/02/16 20: 41; Admin Dose 10 MG; Start 12/02/16 at 21:00 Sodium Chloride (NS) 1,000 ml @ 100 mls/hr Q10H IV Last administered on 05:49; Admin Dose 100 MLS/HR; Start 12/02/16 at 15:13 Ondansetron HCl (Zofran Inj) 4 mg Q6H PRN IV NAUSEA AND/OR VOMITING; Start 12/02 at 15:30 Acetaminophen (Tylenol Tab) 650 mg Q6H PRN PO PAIN LEVEL 1-3 OR FEVER; Start at 15:30 Oxycodone/ Acetaminophen (Percocet (5/ 325)) 1 tab Q6H PRN PO MODERATE PAIN LEVEL 4-6 Last administered on 12/02/16 18:22; Admin Dose 1 TAB; Start 12/02/16 at 15:30 Morphine Sulfate (morphine) 2 mg Q4H PRN IV SEVERE PAIN LEVEL 7-10; Start at 15:30 Docusate Sodium (Colace) 100 mg Q12H PRN PO CONSTIPATION; Start 12/02/16 at 15: 30 Zolpidem Tartrate (Ambien) 5 mg QHS PRN PO SLEEP; Start 12/02/16 at 15:30 Miscellaneous Information 1 ea NOTE XX ; Start 12/02/16 at 16:00 Glucose (Glutose) 15 gm Q15M PRN PO DECREASED GLUCOSE; Start 12/02/16 at 16:00 Glucose (Glutose) 22.5 gm Q15M PRN PO DECREASED GLUCOSE; Start 12/02/16 at 16:00 Dextrose (D50w Syringe) 25 ml Q15M PRN IV DECREASED GLUCOSE; Start 12/02/16 at 16:00 Dextrose (D50w Syringe) 50 ml Q15M PRN IV DECREASED GLUCOSE; Start 12/02/16 at 16:00 Glucagon (Glucagen) 1 mg Q15M PRN IM DECREASED GLUCOSE; Start 12/02/16 at 16:00 Glucose (Glutose) 15 gm Q15M PRN BUCCAL DECREASED GLUCOSE; Start 12/02/16 at 16: 00 Famotidine (Pepcid) 20 mg HS PO Last administered on 12/02/16 20:41; Admin Dose 20 MG; Start 12/02/16 at 21:00 Ferrous Sulfate 325 mg 325 mg BID PO Last administered on 12/03/16 08:29; Admin Dose 325 MG; Start 12/02/16 at 21:00 Cefepime HCl (Maxipime 2gm/50 ml (Pmx)) 50 ml @ 100 mls/hr Q12 IVPB Last administered on 12/03/16 08:32; Admin Dose 100 MLS/HR; Start 12/02/16 at 21:00 Lactobacillus Acidophilus/ Rhamnosus (Culturelle) 1 cap BID PO Last administered on 12/03/16 08:29; Admin Dose 1 CAP; Start 12/02/16 at 21:00 Polyethylene Glycol (Miralax) 17 gm DAILY PO Last administered on 12/03/16 08: 30; Admin Dose 17 GM; Start 12/02/16 at 18:00 Collagenase 1 applic 1 applic DAILY TOP Last administered on 12/03/16 08:31; Admin Dose 1 APPLIC; Start 12/03/16 at 09:00 Vancomycin HCl 250 ml @ 125 mls/hr Q12H IVPB Last administered on 12/03/16 10: 22; Admin Dose 125 MLS/HR; Start 12/03/16 at 10:00 Ferric Sodium Gluconate Complex/ Sodium Chloride (Ferrlecit/NS) 110 ml @ 100 mls/hr Q24H IVPB ; Start 12/03/16 at 11:00; Stop 12/05/16 at 12:05 Levothyroxine Sodium (Synthroid) 50 mcg DAILY@06 PO ; Start 12/04/16 at 06:00 Miscellaneous Information (*Rx Drug Level Order Reminder*) 1 ONCE ONCE XX ; Start 12/04/16 at 09:00; Stop 12/04/16 at 09:01 KHRIS FLORES DPEsha Dec 03, 2016 12:36
[2016-12-03] MEDS: OXYCODONE/ACETAMINOPHEN (5/325) TAB PO PRN (16:54)
[2016-12-03 20:19] VITALS: BP 123/60; RESP 18
[2016-12-03] MEDS: FAMOTIDINE 20 MG TAB PO SCH (20:37)
[2016-12-03] MEDS: ATORVASTATIN 10 MG TAB PO SCH (20:37)
[2016-12-03] MEDS: INSULIN GLARGINE [LANtus] 3 ML PEN SC SCH (20:39)
[2016-12-04] MEDS: OXYCODONE/ACETAMINOPHEN (5/325) TAB PO PRN (05:04)
[2016-12-04] MEDS: LEVOTHYROXINE 50 MCG TAB PO SCH (05:04)
[2016-12-04 08:08] VITALS: BP 143/67; RESP 20
[2016-12-04] MEDS: INSULIN ASPART [NOVOLOG] 3 ML PEN SC SCH ×4 (08:48→20:48)
[2016-12-04] MEDS: FERROUS SULFATE (EC) 325 MG TAB PO SCH ×2 (08:49→20:38)
[2016-12-04] MEDS: ASPIRIN (EC) 81 MG TAB PO SCH (08:49)
[2016-12-04] MEDS: POLYETHYLENE GLYCOL 17 GM PACKET PO SCH (08:49)
[2016-12-04] MEDS: LACTOBACILLUS RHAMNOSUS CAP PO SCH ×2 (08:49→20:38)
[2016-12-04] MEDS: CLOPIDOGREL 75 MG TAB PO SCH (08:49)
[2016-12-04] MEDS: COLLAGENASE 30 GM TUBE TOP SCH ×2 (08:51→19:30)
[2016-12-04] MEDS: CEFEPIME 2GM/50 ML (PMX) 50 ML IVPB SCH ×2 (09:20→20:37)
[2016-12-04 09:27] LABS: ADD SCAN DIFF NO
[2016-12-04 09:34] LABS: BASOPHIL # 0.1 10^3/ul (0.0-0.1); BASOPHILS % 0.6 % (0.0-2.0); EOSINOPHILS # 0.1 10^3/ul (0.0-0.5); EOSINOPHILS % 1.3 % (0.0-7.0); HEMATOCRIT 30.1 % (42.0-52.0); HEMOGLOBIN 9.5 g/dl (14.0-18.0); LYMPHOCYTES # 1.3 10^3/ul (0.8-2.9); LYMPHOCYTES % 15.4 % (15.0-51.0); MEAN CORPUSCULAR HGB CONC 31.6 g/dl (32.0-37.0); MEAN CORPUSCULAR VOLUME 82.5 fl (82.0-101.0); MEAN PLATELET VOLUME 9.6 fl (7.4-10.4); MONOCYTE # 0.5 10^3/ul (0.3-0.9); MONOCYTES % 5.6 % (0.0-11.0); NEUTROPHIL # 6.4 10^3/ul (1.6-7.5); NEUTROPHILS % 76.7 % (39.0-77.0); PLATELET COUNT 325 10^3/UL (140-415); RED BLOOD COUNT 3.65 10^6/ul (4.70-6.10); RED CELL DISTRIBUTION WIDTH 15.1 % (11.5-14.5); WHITE BLOOD COUNT 8.3 10^3/ul (4.8-10.8)
[2016-12-04 09:52] LABS: CALCIUM 8.8 mg/dl (8.4-10.2); CREATININE 1.11 mg/dl (0.61-1.24); POTASSIUM 4.4 mmol/L (3.5-5.1)
[2016-12-04] MEDS: VANCOMYCIN 1 GM in NS 250 ML IVPB SCH ×2 (11:20→21:55)
[2016-12-04] MEDS: SOD CHLORIDE 0.9% 1,000 ML IV SCH (11:23)
[2016-12-04] MEDS: SOD FERRIC GLUC COMPLX 125 MG in SOD CHLORIDE 0.9% 100 ML IVPB SCH (13:30)
--- NOTE | 2016-12-04 16:19 | PN ---
Date/Time of Note Date/Time of Note DATE: 12/04/16 TIME: 16:17 Assessment/Plan VTE Prophylaxis VTE Prophylaxis Intervention: LMWH Lines/Catheters IV [facility] Peripheral IV Urinary Cath still in place: No Assessment/Plan Chief Complaint/Hosp Course Subjective: 12/03 no events 12/04: No fever dyspnea. Pain controlled. No BM 4 days. Objective: Vital signs stable Physical exam No pallor Reg Clear Benign No edema. Probable neuropathy. Rt heel C/D/I A/P: 1. Lt lwr ext gangrene/recent amputation. Stable cont nonweightbearing status. 2. Lt foot DFI/lateral plantar new wound. For debridement. [May proceed forward to surgery from medical standpointhold Lovenox]. Restart wound VAC when ok w podiatry 3. Chr PAD; ho bypass. Cont risk factor modification, asa? 4. Chr CAD/ old MD?/ CABG status. Stable cont risk factor modification 5. Deconditioning; PT nwb left foot 6. Chr Dm/metabolic syndrome; will adjust insulin after surgery. 7. Ckd 8. Rt second toe amputation status 9. Iron deficiency anemia, start iron 10. Hypothyroidism, started treatment 11. Constipation Problems: Exam/Review of Systems Vital Signs Vitals Vital Signs Date Time Temp Pulse Resp B/P Pulse Ox O2 Delivery O2 Flow Rate FiO2 12/04/16 08:08 97.6 83 20 143/67 95 12/02/16 16:15 Room Air Intake and Output 12/03/16 12/03/16 12/04/16 15:00 23:00 07:00 Intake Total 1770 ml 1050 ml 1550 ml Output Total 1000 ml 900 ml Balance 770 ml 1050 ml 650 ml Results Result Diagram: 12/04/16 0850 12/04/16 0850 Results 24 hrs Laboratory Tests Test 12/03/16 17:27 12/03/16 20:35 12/04/16 02:57 12/04/16 08:04 Bedside Glucose 217 221 H 239 H 218 Test 12/04/16 08:50 12/04/16 11:47 White Blood Count 8.3 Red Blood Count 3.65 L Hemoglobin 9.5 L Hematocrit 30.1 L Mean Corpuscular Volume 82.5 Mean Corpuscular Hemoglobin 26.0 L Mean Corpuscular Hemoglobin Concent 31.6 L Red Cell Distribution Width 15.1 H Platelet Count 325 Mean Platelet Volume 9.6 Neutrophils % 76.7 Lymphocytes % 15.4 Monocytes % 5.6 Eosinophils % 1.3 Basophils % 0.6 Nucleated Red Blood Cells % 0.0 Neutrophils # 6.4 Lymphocytes # 1.3 Monocytes # 0.5 Eosinophils # 0.1 Basophils # 0.1 Nucleated Red Blood Cells # 0.0 Sodium Level 137 Potassium Level 4.4 Chloride Level 97 Carbon Dioxide Level 24 Anion Gap 20 H Blood Urea Nitrogen 12 Creatinine 1.11 Glucose Level 234 H Calcium Level 8.8 Free Thyroxine 1.33 Total Triiodothyronine 0.88 L Vancomycin Level Trough 13.2 Bedside Glucose 266 H Medications Medications Current Medications Aspirin (Halfprin) 81 mg DAILY PO Last administered on 12/04/16 08:49; Admin Dose 81 MG; Start 12/03/16 at 09:00 Clopidogrel Bisulfate (plaVIX) 75 mg DAILY PO Last administered on 12/04/16 08: 49; Admin Dose 75 MG; Start 12/03/16 at 09:00 Insulin Glargine (Lantus) 5 unit QHS SC Last administered on 12/03/16 20:39; Admin Dose 5 UNIT; Start 12/02/16 at 21:00 Atorvastatin Calcium 10 mg 10 mg DAILY@21 PO Last administered on 12/03/16 20: 37; Admin Dose 10 MG; Start 12/02/16 at 21:00 Sodium Chloride (NS) 1,000 ml @ 100 mls/hr Q10H IV Last administered on 11:23; Admin Dose 100 MLS/HR; Start 12/02/16 at 15:13 Ondansetron HCl (Zofran Inj) 4 mg Q6H PRN IV NAUSEA AND/OR VOMITING; Start 12/02 at 15:30 Acetaminophen (Tylenol Tab) 650 mg Q6H PRN PO PAIN LEVEL 1-3 OR FEVER; Start at 15:30 Oxycodone/ Acetaminophen (Percocet (5/ 325)) 1 tab Q6H PRN PO MODERATE PAIN LEVEL 4-6 Last administered on 12/04/16 05:04; Admin Dose 1 TAB; Start 12/02/16 at 15:30 Morphine Sulfate (morphine) 2 mg Q4H PRN IV SEVERE PAIN LEVEL 7-10; Start at 15:30 Docusate Sodium (Colace) 100 mg Q12H PRN PO CONSTIPATION; Start 12/02/16 at 15: 30 Zolpidem Tartrate (Ambien) 5 mg QHS PRN PO SLEEP; Start 12/02/16 at 15:30 Miscellaneous Information 1 ea NOTE XX ; Start 12/02/16 at 16:00 Glucose (Glutose) 15 gm Q15M PRN PO DECREASED GLUCOSE; Start 12/02/16 at 16:00 Glucose (Glutose) 22.5 gm Q15M PRN PO DECREASED GLUCOSE; Start 12/02/16 at 16:00 Dextrose (D50w Syringe) 25 ml Q15M PRN IV DECREASED GLUCOSE; Start 12/02/16 at 16:00 Dextrose (D50w Syringe) 50 ml Q15M PRN IV DECREASED GLUCOSE; Start 12/02/16 at 16:00 Glucagon (Glucagen) 1 mg Q15M PRN IM DECREASED GLUCOSE; Start 12/02/16 at 16:00 Glucose (Glutose) 15 gm Q15M PRN BUCCAL DECREASED GLUCOSE; Start 12/02/16 at 16: 00 Famotidine (Pepcid) 20 mg HS PO Last administered on 12/03/16 20:37; Admin Dose 20 MG; Start 12/02/16 at 21:00 Ferrous Sulfate 325 mg 325 mg BID PO Last administered on 12/04/16 08:49; Admin Dose 325 MG; Start 12/02/16 at 21:00 Cefepime HCl (Maxipime 2gm/50 ml (Pmx)) 50 ml @ 100 mls/hr Q12 IVPB Last administered on 12/04/16 09:20; Admin Dose 100 MLS/HR; Start 12/02/16 at 21:00 Lactobacillus Acidophilus/ Rhamnosus (Culturelle) 1 cap BID PO Last administered on 12/04/16 08:49; Admin Dose 1 CAP; Start 12/02/16 at 21:00 Polyethylene Glycol (Miralax) 17 gm DAILY PO Last administered on 12/04/16 08: 49; Admin Dose 17 GM; Start 12/02/16 at 18:00 Collagenase 1 applic 1 applic DAILY TOP Last administered on 12/03/16 08:31; Admin Dose 1 APPLIC; Start 12/03/16 at 09:00 Vancomycin HCl 250 ml @ 125 mls/hr Q12H IVPB Last administered on 12/04/16 11: 20; Admin Dose 125 MLS/HR; Start 12/03/16 at 10:00 Ferric Sodium Gluconate Complex/ Sodium Chloride (Ferrlecit/NS) 110 ml @ 100 mls/hr Q24H IVPB Last administered on 12/04/16 13:30; Admin Dose 100 MLS/HR; Start 12/03/16 at 11:00; Stop 12/05/16 at 12:05 Levothyroxine Sodium (Synthroid) 50 mcg DAILY@06 PO Last administered on 05:04; Admin Dose 50 MCG; Start 12/04/16 at 06:00 NIMA ROD MD Dec 04, 2016 16:19
[2016-12-04 19:55] VITALS: BP 141/84; RESP 18
[2016-12-04] MEDS: MAGNESIUM HYDROXIDE 30ML CUP PO SCH (20:38)
[2016-12-04] MEDS: FAMOTIDINE 20 MG TAB PO SCH (20:38)
[2016-12-04] MEDS: ATORVASTATIN 10 MG TAB PO SCH (20:38)
[2016-12-04] MEDS: INSULIN GLARGINE [LANtus] 3 ML PEN SC SCH (20:47)
[2016-12-05] VITALS (16 sets, daily range): BP systolic 93–143; BP diastolic 48–65; PULSE 70–77; RESP 10–20
[2016-12-05 05:36] LABS: ADD SCAN DIFF NO
[2016-12-05 05:40] LABS: BASOPHIL # 0.1 10^3/ul (0.0-0.1); BASOPHILS % 0.7 % (0.0-2.0); EOSINOPHILS # 0.1 10^3/ul (0.0-0.5); EOSINOPHILS % 1.3 % (0.0-7.0); HEMATOCRIT 29.1 % (42.0-52.0); HEMOGLOBIN 9.4 g/dl (14.0-18.0); LYMPHOCYTES # 1.7 10^3/ul (0.8-2.9); MEAN CORPUSCULAR HEMOGLOBIN 26.4 pg (29.0-33.0); MEAN CORPUSCULAR HGB CONC 32.3 g/dl (32.0-37.0); MEAN CORPUSCULAR VOLUME 81.7 fl (82.0-101.0); MEAN PLATELET VOLUME 9.4 fl (7.4-10.4); MONOCYTE # 0.6 10^3/ul (0.3-0.9); MONOCYTES % 6.9 % (0.0-11.0); NEUTROPHIL # 6.5 10^3/ul (1.6-7.5); NEUTROPHILS % 71.5 % (39.0-77.0); PLATELET COUNT 331 10^3/UL (140-415); RED BLOOD COUNT 3.56 10^6/ul (4.70-6.10); WHITE BLOOD COUNT 9.1 10^3/ul (4.8-10.8)
[2016-12-05 05:50] LABS: INR 1.16; PROTIME 14.8 Sec (12.2-14.2); PT RATIO 1.2
[2016-12-05] MEDS: LEVOTHYROXINE 50 MCG TAB PO SCH (05:54)
[2016-12-05 06:04] LABS: CALCIUM 8.6 mg/dl (8.4-10.2); CREATININE 1.07 mg/dl (0.61-1.24); POTASSIUM 4.4 mmol/L (3.5-5.1)
[2016-12-05] MEDS: INSULIN ASPART [NOVOLOG] 3 ML PEN SC SCH ×4 (08:20→20:35)
[2016-12-05] MEDS: FERROUS SULFATE (EC) 325 MG TAB PO SCH ×2 (08:41→20:32)
[2016-12-05] MEDS: MAGNESIUM HYDROXIDE 30ML CUP PO SCH ×2 (08:41→20:31)
[2016-12-05] MEDS: LACTOBACILLUS RHAMNOSUS CAP PO SCH ×2 (08:41→20:32)
[2016-12-05] MEDS: ASPIRIN (EC) 81 MG TAB PO SCH (08:41)
[2016-12-05] MEDS: CLOPIDOGREL 75 MG TAB PO SCH (08:42)
[2016-12-05] MEDS: POLYETHYLENE GLYCOL 17 GM PACKET PO SCH (08:42)
[2016-12-05] MEDS: CEFEPIME 2GM/50 ML (PMX) 50 ML IVPB SCH ×2 (08:48→20:39)
[2016-12-05] MEDS: COLLAGENASE 30 GM TUBE TOP SCH ×2 (08:55→09:43)
--- NOTE | 2016-12-05 09:18 | RADRPT ---
PROCEDURE: US left lower extremity arteries. CLINICAL INDICATION: Left leg pain. Left lower extremity gangrene.. TECHNIQUE: Multiple longitudinal and transverse images of the left lower extremity arteries were o btained with kimble scale and color Doppler imaging. COMPARISON: No prior studies are available for comparison. FINDINGS: Location [id number] cm/sec [id number] cm/sec SFA to greater saphenous vein cm/sec Venous graft [id number] cm/sec Venous graft mid thigh71 cm/sec Venous graft distal thigh89 cm/sec Venous graft at knee81 cm/sec. 233 ml/minute Venous graft proximal lower [id number] cm/sec. 230 ml/minute Venous graft mid lower leg93 cm/sec. 135 ml/minute Venous graft distal lower leg97 cm/sec. 148 ml/minute [id number] cm/sec The left superficial femoral artery to the peroneal artery bypass graft appears patent. IMPRESSION: 1. Left superficial femoral artery to peroneal artery bypass graft appears patent. RPTAT: QQ .Curry Bobo MD, MD Date Time Electronically viewed and signed by .Curry Bobo MD, MD on 12/05/2016 09:18 .R/
[2016-12-05] MEDS: VANCOMYCIN 1 GM in NS 250 ML IVPB SCH ×2 (09:44→21:50)
[2016-12-05] MEDS: SOD FERRIC GLUC COMPLX 125 MG in SOD CHLORIDE 0.9% 100 ML IVPB SCH (11:00)
--- NOTE | 2016-12-05 11:08 | RADRPT ---
Vent Rate: 88 bpm RR Interval: 0 msec CA Interval: 130 msec QRS Duration: 98 msec QT Interval: 396 msec QTC Interval: 479 msec P-R-T [place]: 81 - 73 - 75 degrees Normal sinus rhythm Normal ECG Electronically Signed By: Willis Solorio [id number]
[2016-12-05] MEDS ORDERED: MIDAZOLAM 1 MG/ML 2 ML INJ ONE (12:21)
[2016-12-05] MEDS ORDERED: PROPOFOL 20 ML ONE (12:21)
[2016-12-05] MEDS ORDERED: FENTAnyl 50 MCG/ML VIAL ONE (12:21)
--- NOTE | 2016-12-05 12:21 | HPN ---
Date/Time of Note Date/Time of Note DATE: 12/05/16 TIME: 12:20 Interval H&P Admission Note Pt. seen H&P reviewed: No system changes KHRIS FLORES DPM Dec 05, 2016 12:21
[2016-12-05] MEDS ORDERED: METOPROLOL 5 MG INJ ONE (12:24)
[2016-12-05] MEDS ORDERED: PHENYLephrine (100 MCG/ML) 5ML SYG ONE (12:39)
[2016-12-05] MEDS ORDERED: METOCLOPRAMIDE 10 MG INJ ONE (12:58)
[2016-12-05] MEDS ORDERED: ONDANSETRON 4 MG INJ ONE (12:58)
[2016-12-05] MEDS ORDERED: EPHEDrine SULFATE 50 MG/5 ML SYG IV PRN (13:00)
[2016-12-05] MEDS ORDERED: LABETALOL HCL 20MG INJ IV PRN (13:00)
[2016-12-05] MEDS ORDERED: METOCLOPRAMIDE 10 MG INJ IV PRN (13:00)
[2016-12-05] MEDS ORDERED: hydrALAzine 20 MG INJ IV PRN (13:00)
[2016-12-05] MEDS ORDERED: DIPHENHYDRAMINE 50 MG INJ IV PRN (13:00)
[2016-12-05] MEDS ORDERED: morphine (1 MG/ML) 10ML SYRINGE IV PRN ×3 (13:00)
[2016-12-05] MEDS ORDERED: OXYCODONE/ACETAMINOPHEN (5/325) TAB PO PRN (13:00)
[2016-12-05] MEDS ORDERED: ALBUMIN HUMAN 5% 250 ML IV PRN (13:00)
[2016-12-05] MEDS ORDERED: MEPERIDINE 25 MG INJ IV PRN (13:00)
[2016-12-05] MEDS ORDERED: ONDANSETRON 4 MG INJ IV PRN (13:00)
[2016-12-05] MEDS ORDERED: HYDROmorphONE (0.2 MG/ML) 10ML SYG IV PRN ×3 (13:00)
--- NOTE | 2016-12-05 14:53 | RADRPT ---
PROCEDURE: XR Left Foot. CLINICAL INDICATION: Left foot pain. Postop. TECHNIQUE: Two views. Frontal and lateral. COMPARISON: 12/02/2016. FINDINGS: As seen previously, there has been amputation through the distal shafts of the second, third, fourth , and fifth metatarsals. An overlying wound vac is noted. There is no other fracture or dislocation. Vascular calcifications are present consistent with athe rosclerosis. Surgical clips are present in the soft tissues around the ankle. Articular surfaces are intact. There is no lytic or blastic lesion. IMPRESSION: 1. Postoperative changes of the left foot as seen previously. 2. Atherosclerosis. RPTAT: QQ .Curry Bobo MD, MD Date Time Electronically viewed and signed by .Curry Bobo MD, on 12/05/2016 14:52 .R/
--- NOTE | 2016-12-05 16:04 | PN ---
Date/Time of Note Date/Time of Note DATE: 12/05/16 TIME: 16:02 Assessment/Plan VTE Prophylaxis VTE Prophylaxis Intervention: LMWH Lines/Catheters IV Catheter Type (from Nrs): Peripheral IV Urinary Cath still in place: No Assessment/Plan Chief Complaint/Hosp Course Subjective: 7/4 no events 12/04: No fever dyspnea. Pain controlled. No BM 4 days. 12/05: Events noted no dyspnea fever Objective: Vital signs stable Physical exam No pallor Reg Clear Benign No edema. Probable neuropathy. Rt heel C/D/Iwound VAC A/P: 1. Lt lwr ext gangrene/recent amputation. Stable cont nonweightbearing status. 2. Lt foot DFI/lateral plantar new wound. sp debridement. hold Lovenox. Restarted VAC 3. Chr PAD; ho bypass. Cont risk factor modification, asa? 4. Chr CAD/ old [place]?/ CABG status. Stable cont risk factor modification 5. Deconditioning; PT nwb left foot 6. Chr Dm/metabolic syndrome; will adjust insulin after surgery. 7. Ckd 8. Rt second toe amputation status 9. Iron deficiency anemia, start iron 10. Hypothyroidism, started treatment 11. Constipation Problems: Exam/Review of Systems Vital Signs Vitals Vital Signs Date Time Temp Pulse Resp B/P Pulse Ox O2 Delivery O2 Flow Rate FiO2 12/05/16 14:43 98.1 76 18 118/56 97 12/05/16 14:05 Room Air Intake and Output 12/04/16 12/04/16 12/05/16 15:00 23:00 07:00 Intake Total 1000 ml 2050 ml 1400 ml Output Total 2420 ml 2550 ml Balance 1000 ml -370 ml -1150 ml Results Result Diagram: 12/05/16 0455 12/05/16 0455 Results 24 hrs Laboratory Tests Test 12/04/16 16:21 12/04/16 17:18 12/04/16 20:43 12/05/16 04:55 Bedside Glucose 145 175 186 White Blood Count 9.1 Red Blood Count 3.56 L Hemoglobin 9.4 L Hematocrit 29.1 L Mean Corpuscular Volume 81.7 L Mean Corpuscular Hemoglobin 26.4 L Mean Corpuscular Hemoglobin Concent 32.3 Red Cell Distribution Width 15.0 H Platelet Count 331 Mean Platelet Volume 9.4 Neutrophils % 71.5 Lymphocytes % 19.0 Monocytes % 6.9 Eosinophils % 1.3 Basophils % 0.7 Nucleated Red Blood Cells % 0.0 Neutrophils # 6.5 Lymphocytes # 1.7 Monocytes # 0.6 Eosinophils # 0.1 Basophils # 0.1 Nucleated Red Blood Cells # 0.0 Prothrombin Time 14.8 H Prothrombin Time Ratio 1.2 INR International Normalized Ratio 1.16 Sodium Level 135 Potassium Level 4.4 Chloride Level 100 Carbon Dioxide Level 27 Anion Gap 12 # Blood Urea Nitrogen 10 Creatinine 1.07 Glucose Level 144 # Calcium Level 8.6 Test 12/05/16 08:00 12/05/16 11:59 12/05/16 13:17 Bedside Glucose 146 129 144 Medications Medications Current Medications Aspirin (Halfprin) 81 mg DAILY PO Last administered on 12/04/16 08:49; Admin Dose 81 MG; Start 12/03/16 at 09:00 Clopidogrel Bisulfate (plaVIX) 75 mg DAILY PO Last administered on 12/04/16 08: 49; Admin Dose 75 MG; Start 12/03/16 at 09:00 Atorvastatin Calcium (Lipitor) 10 mg DAILY@21 PO Last administered on 12/04/16 20:38; Admin Dose 10 MG; Start 12/02/16 at 21:00 Ondansetron HCl (Zofran Inj) 4 mg Q6H PRN IV NAUSEA AND/OR VOMITING; Start 12/02 at 15:30 Acetaminophen (Tylenol Tab) 650 mg Q6H PRN PO PAIN LEVEL 1-3 OR FEVER; Start at 15:30 Oxycodone/ Acetaminophen (Percocet (5/ 325)) 1 tab Q6H PRN PO MODERATE PAIN LEVEL 4-6 Last administered on 12/04/16 05:04; Admin Dose 1 TAB; Start 12/02/16 at 15:30 Morphine Sulfate (morphine) 2 mg Q4H PRN IV SEVERE PAIN LEVEL 7-10; Start at 15:30 Docusate Sodium (Colace) 100 mg Q12H PRN PO CONSTIPATION; Start 12/02/16 at 15: 30 Zolpidem Tartrate (Ambien) 5 mg QHS PRN PO SLEEP; Start 12/02/16 at 15:30 Miscellaneous Information 1 ea NOTE XX ; Start 12/02/16 at 16:00 Glucose (Glutose) 15 gm Q15M PRN PO DECREASED GLUCOSE; Start 12/02/16 at 16:00 Glucose (Glutose) 22.5 gm Q15M PRN PO DECREASED GLUCOSE; Start 12/02/16 at 16:00 Dextrose (D50w Syringe) 25 ml Q15M PRN IV DECREASED GLUCOSE; Start 12/02/16 at 16:00 Dextrose (D50w Syringe) 50 ml Q15M PRN IV DECREASED GLUCOSE; Start 12/02/16 at 16:00 Glucagon (Glucagen) 1 mg Q15M PRN IM DECREASED GLUCOSE; Start 12/02/16 at 16:00 Glucose (Glutose) 15 gm Q15M PRN BUCCAL DECREASED GLUCOSE; Start 12/02/16 at 16: 00 Famotidine (Pepcid) 20 mg HS PO Last administered on 12/04/16 20:38; Admin Dose 20 MG; Start 12/02/16 at 21:00 Ferrous Sulfate 325 mg 325 mg BID PO Last administered on 12/04/16 20:38; Admin Dose 325 MG; Start 12/02/16 at 21:00 Cefepime HCl (Maxipime 2gm/50 ml (Pmx)) 50 ml @ 100 mls/hr Q12 IVPB Last administered on 12/05/16 08:48; Admin Dose 100 MLS/HR; Start 12/02/16 at 21:00 Lactobacillus Acidophilus/ Rhamnosus (Culturelle) 1 cap BID PO Last administered on 12/04/16 20:38; Admin Dose 1 CAP; Start 12/02/16 at 21:00 Polyethylene Glycol (Miralax) 17 gm DAILY PO Last administered on 12/04/16 08: 49; Admin Dose 17 GM; Start 12/02/16 at 18:00 Collagenase 1 applic 1 applic DAILY TOP Last administered on 12/05/16 09:43; Admin Dose 1 APPLIC; Start 12/03/16 at 09:00 Vancomycin HCl (Vancocin) 250 ml @ 125 mls/hr Q12H IVPB Last administered on 09:44; Admin Dose 125 MLS/HR; Start 12/03/16 at 10:00 Levothyroxine Sodium (Synthroid) 50 mcg DAILY@06 PO Last administered on 05:04; Admin Dose 50 MCG; Start 12/04/16 at 06:00 Insulin Glargine (Lantus) 7 unit QHS SC Last administered on 12/04/16 20:47; Admin Dose 7 UNIT; Start 12/04/16 at 21:00 Magnesium Hydroxide (Milk Of Mag) 30 ml BID PO Last administered on 12/04/16 20 :38; Admin Dose 30 ML; Start 12/04/16 at 21:00; Stop 12/05/16 at 23:00 NIMA ROD MD Dec 05, 2016 16:03
[2016-12-05] MEDS: FAMOTIDINE 20 MG TAB PO SCH (20:32)
[2016-12-05] MEDS: INSULIN GLARGINE [LANtus] 3 ML PEN SC SCH (20:38)
[2016-12-05] MEDS: ATORVASTATIN 10 MG TAB PO SCH (20:39)
[2016-12-06 02:00] VITALS: BP 110/59; RESP 20
[2016-12-06 05:01] LABS: ADD SCAN DIFF NO
[2016-12-06 05:09] LABS: BASOPHIL # 0.1 10^3/ul (0.0-0.1); BASOPHILS % 0.7 % (0.0-2.0); EOSINOPHILS # 0.3 10^3/ul (0.0-0.5); EOSINOPHILS % 2.6 % (0.0-7.0); HEMOGLOBIN 9.5 g/dl (14.0-18.0); LYMPHOCYTES # 2.1 10^3/ul (0.8-2.9); LYMPHOCYTES % 21.6 % (15.0-51.0); MEAN CORPUSCULAR HEMOGLOBIN 25.7 pg (29.0-33.0); MEAN CORPUSCULAR HGB CONC 31.7 g/dl (32.0-37.0); MEAN CORPUSCULAR VOLUME 81.3 fl (82.0-101.0); MEAN PLATELET VOLUME 9.2 fl (7.4-10.4); MONOCYTE # 0.8 10^3/ul (0.3-0.9); MONOCYTES % 7.8 % (0.0-11.0); NEUTROPHIL # 6.5 10^3/ul (1.6-7.5); NEUTROPHILS % 66.9 % (39.0-77.0); PLATELET COUNT 327 10^3/UL (140-415); RED BLOOD COUNT 3.69 10^6/ul (4.70-6.10); RED CELL DISTRIBUTION WIDTH 15.2 % (11.5-14.5); WHITE BLOOD COUNT 9.7 10^3/ul (4.8-10.8)
[2016-12-06 05:38] LABS: CALCIUM 8.9 mg/dl (8.4-10.2); CREATININE 1.12 mg/dl (0.61-1.24); POTASSIUM 4.3 mmol/L (3.5-5.1)
[2016-12-06] MEDS: LEVOTHYROXINE 50 MCG TAB PO SCH (06:19)
[2016-12-06 07:40] VITALS: BP 123/56; RESP 18
[2016-12-06] MEDS: INSULIN ASPART [NOVOLOG] 3 ML PEN SC SCH ×4 (08:27→20:50)
[2016-12-06] MEDS: CEFEPIME 2GM/50 ML (PMX) 50 ML IVPB SCH ×2 (08:53→20:39)
[2016-12-06] MEDS: CLOPIDOGREL 75 MG TAB PO SCH (08:53)
[2016-12-06] MEDS: FERROUS SULFATE (EC) 325 MG TAB PO SCH ×2 (08:53→20:39)
[2016-12-06] MEDS: LACTOBACILLUS RHAMNOSUS CAP PO SCH ×2 (08:53→20:39)
[2016-12-06] MEDS: ASPIRIN (EC) 81 MG TAB PO SCH (08:53)
[2016-12-06] MEDS: POLYETHYLENE GLYCOL 17 GM PACKET PO SCH (08:53)
[2016-12-06] MEDS: COLLAGENASE 30 GM TUBE TOP SCH (09:00)
[2016-12-06] MEDS: VANCOMYCIN 1 GM in NS 250 ML IVPB SCH ×2 (10:16→21:51)
[2016-12-06 14:28] VITALS: BP 147/75; RESP 16
[2016-12-06] MEDS: FAMOTIDINE 20 MG TAB PO SCH (20:39)
[2016-12-06] MEDS: ATORVASTATIN 10 MG TAB PO SCH (20:39)
[2016-12-06] MEDS: INSULIN GLARGINE [LANtus] 3 ML PEN SC SCH (20:49)
[2016-12-06] MEDS: OXYCODONE/ACETAMINOPHEN (5/325) TAB PO PRN (21:51)
[2016-12-06 22:11] VITALS: BP 125/58; RESP 18
--- NOTE | 2016-12-06 23:24 | PN ---
Date/Time of Note Date/Time of Note DATE: 12/06/16 TIME: 23:20 Assessment/Plan Lines/Catheters IV Catheter Type (from [facility]): Saline Lock [facility] in Place (from [facility]): No Assessment/Plan Problems: (1) Acquired absence of left foot (2) Peripheral vascular disease (3) Lower extremity edema (4) Wound infection Status: Acute (5) Osteomyelitis of left foot Status: Acute Qualifiers: Osteomyelitis type: unspecified type Qualified Code: M86.9 - Osteomyelitis of left foot, unspecified type (6) Left foot infection Status: Acute Assessment/Plan Wound VAC to be changed q48h. Non weight bearing on left foot at this time. May d/c home if no other issues. Patient will be followed in house. Subjective 24 Hr Interval Summary Patient is s/p revision amputation of his left foot with debridement; DOS: 12/05. Patient denies fever, chills, nausea, or vomiting. Patient denies overnight adverse events. Constitutional: no complaints Pain Control: well controlled Exam/Review of Systems Vital Signs Vitals Vital Signs Date Time Temp Pulse Resp B/P Pulse Ox O2 Delivery O2 Flow Rate FiO2 12/06/16 22:11 97.9 82 18 125/58 97 12/05/16 14:05 Room Air Intake and Output 12/05/16 12/05/16 12/06/16 15:00 23:00 07:00 Intake Total 500 ml 490 ml 1300 ml Output Total 5 ml 350 ml 1500 ml Balance 495 ml 140 ml -200 ml Exam Free Text/Dictation Patient is laying supine in bed in no acute distress; wound VAC is intact to the left foot; there is minimal drainage noted; there is decrease in malodor from the left foot; there is no erythema of the foot; there is no bleeding noted. Labs reviewed; imaging reviewed. Results Result Diagram: 12/06/16 0447 12/06/16 0447 KHRIS FLORES DPM Dec 06, 2016 23:24
[2016-12-07 03:13] VITALS: BP 125/64; RESP 18
[2016-12-07 05:57] LABS: CREATININE 1.21 mg/dl (0.61-1.24)
[2016-12-07] MEDS: LEVOTHYROXINE 50 MCG TAB PO SCH (06:20)
[2016-12-07 08:22] VITALS: BP 150/66; RESP 18
[2016-12-07] MEDS: INSULIN ASPART [NOVOLOG] 3 ML PEN SC SCH ×4 (08:32→20:44)
[2016-12-07] MEDS: COLLAGENASE 30 GM TUBE TOP SCH (09:00)
[2016-12-07] MEDS: CEFEPIME 2GM/50 ML (PMX) 50 ML IVPB SCH ×2 (09:48→20:41)
[2016-12-07] MEDS: FERROUS SULFATE (EC) 325 MG TAB PO SCH ×2 (09:48→20:46)
[2016-12-07] MEDS: LACTOBACILLUS RHAMNOSUS CAP PO SCH ×2 (09:48→20:47)
[2016-12-07] MEDS: CLOPIDOGREL 75 MG TAB PO SCH (09:48)
[2016-12-07] MEDS: ASPIRIN (EC) 81 MG TAB PO SCH (09:49)
[2016-12-07] MEDS: POLYETHYLENE GLYCOL 17 GM PACKET PO SCH (09:49)
[2016-12-07] MEDS: VANCOMYCIN 1 GM in NS 250 ML IVPB SCH ×2 (10:34→22:49)
[2016-12-07] MEDS: OXYCODONE/ACETAMINOPHEN (5/325) TAB PO PRN (10:34)
--- NOTE | 2016-12-07 12:09 | PN ---
Date/Time of Note Date/Time of Note DATE: 12/07/16 TIME: 12:05 Assessment/Plan VTE Prophylaxis VTE Prophylaxis Intervention: heparin Lines/Catheters IV Catheter Type (from [facility]): Saline Lock Urinary Cath still in place: No Assessment/Plan Problems: (1) Peripheral vascular disease Status: Chronic Comment: Status post vascular bypass procedure intact and operational (2) Left foot infection Status: Acute Comment: He has had surgical debridement will be going home with wound VAC. Please note he has his own wound VAC which is actually physically here at the hospital. He should be able go home with follow-up outpatient dressing changes (3) Osteomyelitis of left foot Status: Acute Comment: On antibiotics Qualifiers: Osteomyelitis type: unspecified type Qualified Code: M86.9 - Osteomyelitis of left foot, unspecified type (4) Wound infection Status: Acute Comment: On antibiotics Subjective 24 Hr Interval Summary Free Text/Dictation Patient is sitting in bed. His wound VAC at this time is leaking. Constitutional: no complaints Respiratory: no complaints Cardiovascular: no complaints Gastrointestinal: no complaints Exam/Review of Systems Vital Signs Vitals Vital Signs Date Time Temp Pulse Resp B/P Pulse Ox O2 Delivery O2 Flow Rate FiO2 12/07/16 08:22 97.5 79 18 150/66 97 12/05/16 14:05 Room Air Intake and Output 12/06/16 12/06/16 12/07/16 15:00 23:00 07:00 Intake Total 300 ml 1280 ml 1150 ml Output Total 3115 ml 1550 ml Balance 300 ml -1835 ml -400 ml Exam Constitutional: alert, oriented Respiratory: clear to auscultation, normal air movement Cardiovascular: nl pulses, regular rate and rhythm Results Result Diagram: 12/06/16 0447 12/07/16 0450 Results 24 hrs Laboratory Tests Test 12/06/16 17:11 12/06/16 20:45 12/07/16 04:50 12/07/16 08:08 Bedside Glucose 200 216 241 H Blood Urea Nitrogen 17 Creatinine 1.21 Medications Medications Current Medications Aspirin (Halfprin) 81 mg DAILY PO Last administered on 12/07/16 09:49; Admin Dose 81 MG; Start 12/03/16 at 09:00 Clopidogrel Bisulfate (plaVIX) 75 mg DAILY PO Last administered on 12/07/16 09: 48; Admin Dose 75 MG; Start 12/03/16 at 09:00 Atorvastatin Calcium (Lipitor) 10 mg DAILY@21 PO Last administered on 12/06/16 20:39; Admin Dose 10 MG; Start 12/02/16 at 21:00 Ondansetron HCl (Zofran Inj) 4 mg Q6H PRN IV NAUSEA AND/OR VOMITING; Start 12/02 at 15:30 Acetaminophen (Tylenol Tab) 650 mg Q6H PRN PO PAIN LEVEL 1-3 OR FEVER; Start at 15:30 Oxycodone/ Acetaminophen (Percocet (5/ 325)) 1 tab Q6H PRN PO MODERATE PAIN LEVEL 4-6 Last administered on 12/07/16 10:34; Admin Dose 1 TAB; Start 12/02/16 at 15:30 Morphine Sulfate (morphine) 2 mg Q4H PRN IV SEVERE PAIN LEVEL 7-10; Start at 15:30 Docusate Sodium (Colace) 100 mg Q12H PRN PO CONSTIPATION; Start 12/02/16 at 15: 30 Zolpidem Tartrate (Ambien) 5 mg QHS PRN PO SLEEP; Start 12/02/16 at 15:30 Miscellaneous Information 1 ea NOTE XX ; Start 12/02/16 at 16:00 Glucose (Glutose) 15 gm Q15M PRN PO DECREASED GLUCOSE; Start 12/02/16 at 16:00 Glucose (Glutose) 22.5 gm Q15M PRN PO DECREASED GLUCOSE; Start 12/02/16 at 16:00 Dextrose (D50w Syringe) 25 ml Q15M PRN IV DECREASED GLUCOSE; Start 12/02/16 at 16:00 Dextrose (D50w Syringe) 50 ml Q15M PRN IV DECREASED GLUCOSE; Start 12/02/16 at 16:00 Glucagon (Glucagen) 1 mg Q15M PRN IM DECREASED GLUCOSE; Start 12/02/16 at 16:00 Glucose (Glutose) 15 gm Q15M PRN BUCCAL DECREASED GLUCOSE; Start 12/02/16 at 16: 00 Famotidine (Pepcid) 20 mg HS PO Last administered on 12/06/16 20:39; Admin Dose 20 MG; Start 12/02/16 at 21:00 Ferrous Sulfate 325 mg 325 mg BID PO Last administered on 12/07/16 09:48; Admin Dose 325 MG; Start 12/02/16 at 21:00 Cefepime HCl (Maxipime 2gm/50 ml (Pmx)) 50 ml @ 100 mls/hr Q12 IVPB Last administered on 12/07/16 09:48; Admin Dose 100 MLS/HR; Start 12/02/16 at 21:00 Lactobacillus Acidophilus/ Rhamnosus (Culturelle) 1 cap BID PO Last administered on 12/07/16 09:48; Admin Dose 1 CAP; Start 12/02/16 at 21:00 Polyethylene Glycol (Miralax) 17 gm DAILY PO Last administered on 12/07/16 09: 49; Admin Dose 17 GM; Start 12/02/16 at 18:00 Collagenase 1 applic 1 applic DAILY TOP Last administered on 12/05/16 09:43; Admin Dose 1 APPLIC; Start 12/03/16 at 09:00 Vancomycin HCl (Vancocin) 250 ml @ 125 mls/hr Q12H IVPB Last administered on 10:34; Admin Dose 125 MLS/HR; Start 12/03/16 at 10:00 Levothyroxine Sodium (Synthroid) 50 mcg DAILY@06 PO Last administered on 06:20; Admin Dose 50 MCG; Start 12/04/16 at 06:00 Insulin Glargine (Lantus) 7 unit QHS SC Last administered on 12/06/16 20:49; Admin Dose 7 UNIT; Start 12/04/16 at 21:00 Miscellaneous Information (*Rx Drug Level Order Reminder*) VANCOMYCIN TROUGH 12/07 AT 2100 ONCE ONCE XX ; Start 12/07/16 at 21:00; Stop 12/07/16 at 21:01 TAMERA AHN MD Dec 07, 2016 12:09
[2016-12-07 14:00] VITALS: BP 136/65; RESP 18
--- NOTE | 2016-12-07 14:24 | PN ---
Date/Time of Note Date/Time of Note DATE: 12/07/16 TIME: 14:22 Assessment/Plan Lines/Catheters IV Catheter Type (from Nrs): Saline Lock Cruz in Place (from Nrs): No Assessment/Plan Problems: (1) Lower extremity edema (2) Toe gangrene (3) Wound infection Status: Acute (4) Osteomyelitis of left foot Status: Acute Qualifiers: Osteomyelitis type: unspecified type Qualified Code: M86.9 - Osteomyelitis of left foot, unspecified type (5) Left foot infection Status: Acute (6) Peripheral vascular disease Status: Chronic Assessment/Plan September d/c home with wound VAC. He has his own; awaiting unit to be charged. Patient to follow up in [facility] clinic on Friday. Subjective 24 Hr Interval Summary Patient was seen at bedside. Patient is in no acute distress. Denies overnight adverse events. Denies fever, chills, nausea or vomiting. Reports bandages are being changed daily. Denies recent trauma. States his wound VAC was changed today. Constitutional: no complaints Pain Control: well controlled Exam/Review of Systems Vital Signs Vitals Vital Signs Date Time Temp Pulse Resp B/P Pulse Ox O2 Delivery O2 Flow Rate FiO2 12/09/16 15:17 97.7 83 18 122/58 99 12/05/16 14:05 Room Air Intake and Output 12/08/16 12/08/16 12/09/16 15:00 23:00 07:00 Intake Total 300 ml 1710 ml 850 ml Output Total 1140 ml 1800 ml Balance 300 ml 570 ml -950 ml Exam Free Text/Dictation GENERAL: patient was seen at bedside; patient is in no acute distress, laying supine in bed VASC: pedal pulses weak bilateral feet; edema bilateral lower legs; delayed cap refill time; normal temp gradient NEURO: sensation decreased to sharp, dull, vibratory and temp stimuli DERM: s/p left foot partial amputation with application of wound VAC ORTHO: s/p left foot partial amputation with application of wound VAC IMAGING: reviewed LABS: reviewed Results Result Diagram: 12/06/16 0447 12/09/16 0448 KHRIS FLORES DPM Dec 07, 2016 14:24
--- NOTE | 2016-12-07 16:35 | CONS ---
Date/Time of Note Date/Time of Note DATE: 12/07/16 TIME: 16:35 Assessment/Plan Assessment/Plan Chief Complaint/Hosp Course No acute events overnight. Patient is alert, looks comfortable, denies pain, no fevers Temperature 97.5 pulse 85 respirations 18 blood pressure 136/65 saturation 98% Microbiology: Left foot wound culture growing enterococcus species coag negative staph species and Serratia marcescens Antimicrobials: Vancomycin, cefepime Physical examination: Well-developed well-nourished elderly man who is alert in no distress. Head atraumatic normocephalic. Sclera nonicteric. Neck is supple. Chest rise symmetrical breath sounds clear bilaterally. S1-S2. Abdomen soft bowel tones present. Extremities with left foot dressing intact. Assessment: 1. Left foot cellulitis, osteomyelitis, status post debridement on 12/06/2016 2. Diabetes 3. Chronic kidney disease 4. Peripheral arterial disease Plan: Continue antibiotics we will discuss with podiatry final plan in regards to length of antibiotics. Discussed with patient Problems: Consultation Date/Type/Reason Admit Date/Time Dec 02, 2016 at 13:33 Initial Consult Date 12/03/16 Type of Consultation: ID Exam/Review of Systems Vital Signs Vitals Vital Signs Date Time Temp Pulse Resp B/P Pulse Ox O2 Delivery O2 Flow Rate FiO2 12/07/16 14:00 97.5 85 18 136/65 98 12/05/16 14:05 Room Air Intake and Output 12/06/16 12/06/16 12/07/16 15:00 23:00 07:00 Intake Total 300 ml 1280 ml 1150 ml Output Total 3115 ml 1550 ml Balance 300 ml -1835 ml -400 ml Results Result Diagram: 12/06/16 0447 12/07/16 0450 Results 24 hrs Laboratory Tests Test 12/06/16 17:11 12/06/16 20:45 12/07/16 04:50 12/07/16 08:08 Bedside Glucose 200 216 241 H Blood Urea Nitrogen 17 Creatinine 1.21 Test 12/07/16 12:34 Bedside Glucose 251 H Medications Medications Current Medications Aspirin (Halfprin) 81 mg DAILY PO Last administered on 12/07/16 09:49; Admin Dose 81 MG; Start 12/03/16 at 09:00 Clopidogrel Bisulfate (plaVIX) 75 mg DAILY PO Last administered on 12/07/16 09: 48; Admin Dose 75 MG; Start 12/03/16 at 09:00 Atorvastatin Calcium (Lipitor) 10 mg DAILY@21 PO Last administered on 12/06/16 20:39; Admin Dose 10 MG; Start 12/02/16 at 21:00 Ondansetron HCl (Zofran Inj) 4 mg Q6H PRN IV NAUSEA AND/OR VOMITING; Start 12/02 at 15:30 Acetaminophen (Tylenol Tab) 650 mg Q6H PRN PO PAIN LEVEL 1-3 OR FEVER; Start at 15:30 Oxycodone/ Acetaminophen (Percocet (5/ 325)) 1 tab Q6H PRN PO MODERATE PAIN LEVEL 4-6 Last administered on 12/07/16 10:34; Admin Dose 1 TAB; Start 12/02/16 at 15:30 Morphine Sulfate (morphine) 2 mg Q4H PRN IV SEVERE PAIN LEVEL 7-10; Start at 15:30 Docusate Sodium (Colace) 100 mg Q12H PRN PO CONSTIPATION; Start 12/02/16 at 15: 30 Zolpidem Tartrate (Ambien) 5 mg QHS PRN PO SLEEP; Start 12/02/16 at 15:30 Miscellaneous Information 1 ea NOTE XX ; Start 12/02/16 at 16:00 Glucose (Glutose) 15 gm Q15M PRN PO DECREASED GLUCOSE; Start 12/02/16 at 16:00 Glucose (Glutose) 22.5 gm Q15M PRN PO DECREASED GLUCOSE; Start 12/02/16 at 16:00 Dextrose (D50w Syringe) 25 ml Q15M PRN IV DECREASED GLUCOSE; Start 12/02/16 at 16:00 Dextrose (D50w Syringe) 50 ml Q15M PRN IV DECREASED GLUCOSE; Start 12/02/16 at 16:00 Glucagon (Glucagen) 1 mg Q15M PRN IM DECREASED GLUCOSE; Start 12/02/16 at 16:00 Glucose (Glutose) 15 gm Q15M PRN BUCCAL DECREASED GLUCOSE; Start 12/02/16 at 16: 00 Famotidine (Pepcid) 20 mg HS PO Last administered on 12/06/16 20:39; Admin Dose 20 MG; Start 12/02/16 at 21:00 Ferrous Sulfate 325 mg 325 mg BID PO Last administered on 12/07/16 09:48; Admin Dose 325 MG; Start 12/02/16 at 21:00 Cefepime HCl (Maxipime 2gm/50 ml (Pmx)) 50 ml @ 100 mls/hr Q12 IVPB Last administered on 12/07/16 09:48; Admin Dose 100 MLS/HR; Start 12/02/16 at 21:00 Lactobacillus Acidophilus/ Rhamnosus (Culturelle) 1 cap BID PO Last administered on 12/07/16 09:48; Admin Dose 1 CAP; Start 12/02/16 at 21:00 Polyethylene Glycol (Miralax) 17 gm DAILY PO Last administered on 12/07/16 09: 49; Admin Dose 17 GM; Start 12/02/16 at 18:00 Collagenase 1 applic 1 applic DAILY TOP Last administered on 12/05/16 09:43; Admin Dose 1 APPLIC; Start 12/03/16 at 09:00 Vancomycin HCl (Vancocin) 250 ml @ 125 mls/hr Q12H IVPB Last administered on 10:34; Admin Dose 125 MLS/HR; Start 12/03/16 at 10:00 Levothyroxine Sodium (Synthroid) 50 mcg DAILY@06 PO Last administered on 06:20; Admin Dose 50 MCG; Start 12/04/16 at 06:00 Insulin Glargine (Lantus) 7 unit QHS SC Last administered on 12/06/16 20:49; Admin Dose 7 UNIT; Start 12/04/16 at 21:00 Miscellaneous Information (*Rx Drug Level Order Reminder*) VANCOMYCIN TROUGH 12/07 AT 2100 ONCE ONCE XX ; Start 12/07/16 at 21:00; Stop 12/07/16 at 21:01 DAYANA TSE NP Dec 07, 2016 16:35
[2016-12-07] MEDS: DOCUSATE SODIUM 100 MG CAP PO PRN (18:51)
[2016-12-07 19:30] VITALS: BP 143/65; RESP 20
[2016-12-07] MEDS: INSULIN GLARGINE [LANtus] 3 ML PEN SC SCH (20:45)
[2016-12-07] MEDS: ATORVASTATIN 10 MG TAB PO SCH (20:46)
[2016-12-07] MEDS: FAMOTIDINE 20 MG TAB PO SCH (20:46)
[2016-12-08 02:16] VITALS: BP 125/60; RESP 18
[2016-12-08] MEDS: LEVOTHYROXINE 50 MCG TAB PO SCH (05:35)
[2016-12-08 08:12] VITALS: BP 154/76; RESP 18
[2016-12-08] MEDS: INSULIN ASPART [NOVOLOG] 3 ML PEN SC SCH ×6 (08:12→21:33)
[2016-12-08] MEDS: ASPIRIN (EC) 81 MG TAB PO SCH (08:44)
[2016-12-08] MEDS: CLOPIDOGREL 75 MG TAB PO SCH (08:44)
[2016-12-08] MEDS: FERROUS SULFATE (EC) 325 MG TAB PO SCH ×2 (08:44→21:17)
[2016-12-08] MEDS: CEFEPIME 2GM/50 ML (PMX) 50 ML IVPB SCH ×2 (08:44→21:16)
[2016-12-08] MEDS: LACTOBACILLUS RHAMNOSUS CAP PO SCH ×2 (08:45→21:17)
[2016-12-08] MEDS: POLYETHYLENE GLYCOL 17 GM PACKET PO SCH (08:45)
[2016-12-08] MEDS: COLLAGENASE 30 GM TUBE TOP SCH (09:00)
[2016-12-08] MEDS: VANCOMYCIN 1 GM in NS 250 ML IVPB SCH (10:29)
[2016-12-08] MEDS ORDERED: DOXAZOSIN 1 MG TAB PO ONE (12:00)
--- NOTE | 2016-12-08 12:21 | PN ---
Date/Time of Note Date/Time of Note DATE: 12/08/16 TIME: 12:18 Assessment/Plan VTE Prophylaxis VTE Prophylaxis Intervention: heparin Lines/Catheters IV C[facility] Type (from [facility]): Saline Lock Urinary Cath still in place: No Assessment/Plan Problems: (1) Essential hypertension Status: Chronic Comment: Patient's blood pressure has some room for improvement. Given his significant postvoid residual in lead with an alpha-imani in the setting to try and treat to issues with a single agent. (2) Non-insulin treated type 2 diabetes mellitus Status: Chronic Comment: Upward adjust on his insulin to get better sugar control. (3) Acquired absence of left foot Status: Chronic Comment: Noted. 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 (6) Osteomyelitis of left foot Status: Acute Comment: I am informed today by infectious disease at the plans for 6 weeks of IV antibiotic therapy. As such I will arrange for replacement of the PICC line as well as home health so that he can have all that set up. We at least have his wound VAC Qualifiers: Osteomyelitis type: unspecified type Qualified Code: M86.9 - Osteomyelitis of left foot, unspecified type Subjective 24 Hr Interval Summary Free Text/Dictation Patient requests to have his insulin adjusted and is also concerned about his blood pressure Constitutional: no complaints (Denies fevers chills or sweats) Respiratory: no complaints Cardiovascular: no complaints Gastrointestinal: no complaints Genitourinary: no complaints Exam/Review of Systems Vital Signs Vitals Vital Signs Date Time Temp Pulse Resp B/P Pulse Ox O2 Delivery O2 Flow Rate FiO2 12/08/16 08:12 97.9 88 18 154/76 99 12/05/16 14:05 Room Air Intake and Output 12/07/16 12/07/16 12/08/16 15:00 23:00 07:00 Intake Total 300 ml 1390 ml 600 ml Output Total 1510 ml 900 ml Balance 300 ml -120 ml -300 ml Exam Constitutional: alert, oriented Neck: non-tender, supple Respiratory: clear to auscultation, normal air movement Cardiovascular: nl pulses, regular rate and rhythm Genitourinary - Male: other (See postvoid residual greater than 320 cc) Results Result Diagram: 12/06/16 0447 12/07/16 0450 Results 24 hrs Laboratory Tests Test 12/07/16 12:34 12/07/16 17:24 12/07/16 20:33 12/07/16 21:07 Bedside Glucose 251 H 175 215 Vancomycin Level Trough 18.8 Test 12/08/16 08:04 12/08/16 11:52 Bedside Glucose 209 275 H Medications Medications Current Medications Aspirin (Halfprin) 81 mg DAILY PO Last administered on 12/08/16 08:44; Admin Dose 81 MG; Start 12/03/16 at 09:00 Clopidogrel Bisulfate (plaVIX) 75 mg DAILY PO Last administered on 12/08/16 08: 44; Admin Dose 75 MG; Start 12/03/16 at 09:00 Atorvastatin Calcium (Lipitor) 10 mg DAILY@21 PO Last administered on 12/07/16 20:46; Admin Dose 10 MG; Start 12/02/16 at 21:00 Ondansetron HCl (Zofran Inj) 4 mg Q6H PRN IV NAUSEA AND/OR VOMITING; Start 12/02 at 15:30 Acetaminophen (Tylenol Tab) 650 mg Q6H PRN PO PAIN LEVEL 1-3 OR FEVER; Start at 15:30 Oxycodone/ Acetaminophen (Percocet (5/ 325)) 1 tab Q6H PRN PO MODERATE PAIN LEVEL 4-6 Last administered on 12/07/16 10:34; Admin Dose 1 TAB; Start 12/02/16 at 15:30 Morphine Sulfate (morphine) 2 mg Q4H PRN IV SEVERE PAIN LEVEL 7-10; Start at 15:30 Docusate Sodium (Colace) 100 mg Q12H PRN PO CONSTIPATION Last administered on 18:51; Admin Dose 100 MG; Start 12/02/16 at 15:30 Zolpidem Tartrate (Ambien) 5 mg QHS PRN PO SLEEP; Start 12/02/16 at 15:30 Miscellaneous Information 1 ea NOTE XX ; Start 12/02/16 at 16:00 Glucose (Glutose) 15 gm Q15M PRN PO DECREASED GLUCOSE; Start 12/02/16 at 16:00 Glucose (Glutose) 22.5 gm Q15M PRN PO DECREASED GLUCOSE; Start 12/02/16 at 16:00 Dextrose (D50w Syringe) 25 ml Q15M PRN IV DECREASED GLUCOSE; Start 12/02/16 at 16:00 Dextrose (D50w Syringe) 50 ml Q15M PRN IV DECREASED GLUCOSE; Start 12/02/16 at 16:00 Glucagon (Glucagen) 1 mg Q15M PRN IM DECREASED GLUCOSE; Start 12/02/16 at 16:00 Glucose (Glutose) 15 gm Q15M PRN BUCCAL DECREASED GLUCOSE; Start 12/02/16 at 16: 00 Famotidine (Pepcid) 20 mg HS PO Last administered on 12/07/16 20:46; Admin Dose 20 MG; Start 12/02/16 at 21:00 Ferrous Sulfate 325 mg 325 mg BID PO Last administered on 12/08/16 08:44; Admin Dose 325 MG; Start 12/02/16 at 21:00 Cefepime HCl (Maxipime 2gm/50 ml (Pmx)) 50 ml @ 100 mls/hr Q12 IVPB Last administered on 12/08/16 08:44; Admin Dose 100 MLS/HR; Start 12/02/16 at 21:00 Lactobacillus Acidophilus/ Rhamnosus (Culturelle) 1 cap BID PO Last administered on 12/08/16 08:45; Admin Dose 1 CAP; Start 12/02/16 at 21:00 Polyethylene Glycol (Miralax) 17 gm DAILY PO Last administered on 12/08/16 08: 45; Admin Dose 17 GM; Start 12/02/16 at 18:00 Collagenase 1 applic 1 applic DAILY TOP Last administered on 12/05/16 09:43; Admin Dose 1 APPLIC; Start 12/03/16 at 09:00 Vancomycin HCl (Vancocin) 250 ml @ 125 mls/hr Q12H IVPB Last administered on 10:29; Admin Dose 125 MLS/HR; Start 12/03/16 at 10:00; Stop 12/08/16 at 13 :00 Levothyroxine Sodium (Synthroid) 50 mcg DAILY@06 PO Last administered on 05:35; Admin Dose 50 MCG; Start 12/04/16 at 06:00 Insulin Glargine 7 unit 7 unit QHS SC Last administered on 7/8/17at 20:45; Admin Dose 7 UNIT; Start 12/04/16 at 21:00 Vancomycin HCl/ Sodium Chloride (Vancocin/NS) 150 ml @ 75 mls/hr Q12H IVPB ; Start 12/09/16 at 02:00 Doxazosin Mesylate (Cardura) 4 mg HS PO ; Start 12/08/16 at 21:00 Lidocaine (Xylocaine 1% (Mpf)) 5 ml ONCE ONCE SC ; Start 12/08/16 at 12:30; Stop 12/08/16 at 12:31 TAMERA AHN MD Dec 08, 2016 12:21
[2016-12-08] MEDS ORDERED: LIDOCAINE 1% (MPF) 5 ML VIAL SC ONE (12:30)
[2016-12-08 15:02] VITALS: BP 145/69; RESP 18
--- NOTE | 2016-12-08 16:09 | CONS ---
Date/Time of Note Date/Time of Note DATE: 12/08/16 TIME: 16:08 Assessment/Plan Assessment/Plan Chief Complaint/Hosp Course No acute events overnight. Patient is alert, looks comfortable, denies pain, no fevers Microbiology: Left foot wound culture growing enterococcus species coag negative staph species and Serratia marcescens Antimicrobials: Vancomycin, cefepime Physical examination: Well-developed well-nourished elderly man who is alert in no distress. Head atraumatic normocephalic. Sclera nonicteric. Neck is supple. Chest rise symmetrical breath sounds clear bilaterally. S1-S2. Abdomen soft bowel tones present. Extremities with left foot dressing intact. Assessment: 1. Left foot cellulitis, osteomyelitis, status post debridement on 12/06/2016 2. Diabetes 3. Chronic kidney disease 4. Peripheral arterial disease Plan: Remains stable, continue antibiotics, per discussion with podiatry team patient will need to complete 4-6 weeks antibiotics, will order PICC line. Discussed with staff Problems: Consultation Date/Type/Reason Admit Date/Time Dec 02, 2016 at 13:33 Initial Consult Date 12/03/16 Type of Consultation: ID Exam/Review of Systems Vital Signs Vitals Vital Signs Date Time Temp Pulse Resp B/P Pulse Ox O2 Delivery O2 Flow Rate FiO2 12/08/16 15:02 98.5 82 18 145/69 96 12/05/16 14:05 Room Air Intake and Output 12/07/16 12/07/16 12/08/16 15:00 23:00 07:00 Intake Total 300 ml 1390 ml 600 ml Output Total 1510 ml 900 ml Balance 300 ml -120 ml -300 ml Results Result Diagram: 12/06/16 0447 12/07/16 0450 Results 24 hrs Laboratory Tests Test 12/07/16 17:24 12/07/16 20:33 12/07/16 21:07 12/08/16 08:04 Bedside Glucose 175 215 209 Vancomycin Level Trough 18.8 Test 12/08/16 11:52 Bedside Glucose 275 H Medications Medications Current Medications Aspirin (Halfprin) 81 mg DAILY PO Last administered on 12/08/16 08:44; Admin Dose 81 MG; Start 12/03/16 at 09:00 Clopidogrel Bisulfate (plaVIX) 75 mg DAILY PO Last administered on 12/08/16 08: 44; Admin Dose 75 MG; Start 12/03/16 at 09:00 Atorvastatin Calcium (Lipitor) 10 mg DAILY@21 PO Last administered on 12/07/16 20:46; Admin Dose 10 MG; Start 12/02/16 at 21:00 Ondansetron HCl (Zofran Inj) 4 mg Q6H PRN IV NAUSEA AND/OR VOMITING; Start 12/02 at 15:30 Acetaminophen (Tylenol Tab) 650 mg Q6H PRN PO PAIN LEVEL 1-3 OR FEVER; Start at 15:30 Oxycodone/ Acetaminophen (Percocet (5/ 325)) 1 tab Q6H PRN PO MODERATE PAIN LEVEL 4-6 Last administered on 12/07/16 10:34; Admin Dose 1 TAB; Start 12/02/16 at 15:30 Morphine Sulfate (morphine) 2 mg Q4H PRN IV SEVERE PAIN LEVEL 7-10; Start at 15:30 Docusate Sodium (Colace) 100 mg Q12H PRN PO CONSTIPATION Last administered on 18:51; Admin Dose 100 MG; Start 12/02/16 at 15:30 Zolpidem Tartrate (Ambien) 5 mg QHS PRN PO SLEEP; Start 12/02/16 at 15:30 Miscellaneous Information 1 ea NOTE XX ; Start 12/02/16 at 16:00 Glucose (Glutose) 15 gm Q15M PRN PO DECREASED GLUCOSE; Start 12/02/16 at 16:00 Glucose (Glutose) 22.5 gm Q15M PRN PO DECREASED GLUCOSE; Start 12/02/16 at 16:00 Dextrose (D50w Syringe) 25 ml Q15M PRN IV DECREASED GLUCOSE; Start 12/02/16 at 16:00 Dextrose (D50w Syringe) 50 ml Q15M PRN IV DECREASED GLUCOSE; Start 12/02/16 at 16:00 Glucagon (Glucagen) 1 mg Q15M PRN IM DECREASED GLUCOSE; Start 12/02/16 at 16:00 Glucose (Glutose) 15 gm Q15M PRN BUCCAL DECREASED GLUCOSE; Start 12/02/16 at 16: 00 Famotidine (Pepcid) 20 mg HS PO Last administered on 12/07/16 20:46; Admin Dose 20 MG; Start 7/3/17 at 21:00 Ferrous Sulfate 325 mg 325 mg BID PO Last administered on 12/08/16 08:44; Admin Dose 325 MG; Start 12/02/16 at 21:00 Cefepime HCl (Maxipime 2gm/50 ml (Pmx)) 50 ml @ 100 mls/hr Q12 IVPB Last administered on 12/08/16 08:44; Admin Dose 100 MLS/HR; Start 12/02/16 at 21:00 Lactobacillus Acidophilus/ Rhamnosus (Culturelle) 1 cap BID PO Last administered on 12/08/16 08:45; Admin Dose 1 CAP; Start 12/02/16 at 21:00 Polyethylene Glycol (Miralax) 17 gm DAILY PO Last administered on 12/08/16 08: 45; Admin Dose 17 GM; Start 12/02/16 at 18:00 Collagenase (Santyl) 1 applic DAILY TOP Last administered on 12/05/16 09:43; Admin Dose 1 APPLIC; Start 12/03/16 at 09:00 Levothyroxine Sodium 50 mcg 50 mcg DAILY@06 PO Last administered on 12/08/16 05 :35; Admin Dose 50 MCG; Start 12/04/16 at 06:00 Vancomycin HCl/ Sodium Chloride (Vancocin/NS) 150 ml @ 75 mls/hr Q12H IVPB ; Start 12/09/16 at 02:00 Doxazosin Mesylate (Cardura) 4 mg HS PO ; Start 12/08/16 at 21:00 Insulin Glargine (Lantus) 12 unit QHS SC ; Start 12/08/16 at 21:00 DAYANA TSE NP Dec 08, 2016 16:09
[2016-12-08 19:49] VITALS: BP 149/68; RESP 18
[2016-12-08] MEDS ORDERED: DOXAZOSIN 4 MG TAB PO SCH (21:00)
[2016-12-08] MEDS ORDERED: INSULIN GLARGINE [LANtus] 3 ML PEN SC SCH (21:00)
[2016-12-08] MEDS: ATORVASTATIN 10 MG TAB PO SCH (21:17)
[2016-12-08] MEDS: DOCUSATE SODIUM 100 MG CAP PO PRN (21:17)
[2016-12-08] MEDS: FAMOTIDINE 20 MG TAB PO SCH (21:18)
[2016-12-08] MEDS: OXYCODONE/ACETAMINOPHEN (5/325) TAB PO PRN (21:21)
[2016-12-09 02:25] VITALS: BP 144/68; RESP 17
[2016-12-09] MEDS: VANCOMYCIN 750 MG in SOD CHLORIDE 0.9% 150 ML IVPB SCH ×2 (03:15→14:01)
[2016-12-09 05:45] LABS: CREATININE 1.11 mg/dl (0.61-1.24)
[2016-12-09] MEDS: LEVOTHYROXINE 50 MCG TAB PO SCH (05:53)
[2016-12-09] MEDS: INSULIN ASPART [NOVOLOG] 3 ML PEN SC SCH ×6 (07:43→17:30)
[2016-12-09] MEDS: CLOPIDOGREL 75 MG TAB PO SCH (08:17)
[2016-12-09] MEDS: POLYETHYLENE GLYCOL 17 GM PACKET PO SCH (08:17)
[2016-12-09] MEDS: LACTOBACILLUS RHAMNOSUS CAP PO SCH (08:17)
[2016-12-09] MEDS: FERROUS SULFATE (EC) 325 MG TAB PO SCH (08:17)
[2016-12-09] MEDS: ASPIRIN (EC) 81 MG TAB PO SCH (08:17)
[2016-12-09] MEDS: CEFEPIME 2GM/50 ML (PMX) 50 ML IVPB SCH ×2 (08:17→16:43)
[2016-12-09 08:36] VITALS: BP 124/58; RESP 16
[2016-12-09] MEDS: COLLAGENASE 30 GM TUBE TOP SCH (09:00)
[2016-12-09] MEDS ORDERED: DOCUSATE SODIUM 100 MG CAP PO SCH (09:00)
[2016-12-09] MEDS ORDERED: LIDOCAINE 1% (MPF) 5 ML VIAL SC ONE (10:30)
--- NOTE | 2016-12-09 11:08 | RADRPT ---
PROCEDURE: US guidance for PICC line CLINICAL INDICATION: PICC line placement TECHNIQUE: Multiple real-time images were acquired of the patient's arm utilizing a high resolutio n transducer. This was performed by the PICC line nurse for venous access. COMPARISON: None FINDINGS: Ultrasound guidance for PICC line placement. IMPRESSION: Ultrasound guidance for PICC line placement. RPTAT: AA .Shawn Alan MD, MD Date Time Electronically viewed and signed by .Shawn Alan MD, on 12/09/2016 11:07 .S/
--- NOTE | 2016-12-09 13:05 | RADRPT ---
PROCEDURE: XR Chest. CLINICAL INDICATION: Check PICC line position. TECHNIQUE: Single frontal view. COMPARISON: 12/03/2016. FINDINGS: There is a left arm PICC line with the tip in the left brachiocephalic vein coiled posteriorly. The visualized portions of the lungs are clear. There are sternal wires and mediastinal clips. The le ft lower lung laterally is not included on the image. The heart size is normal. There is no pleural effusion. There is no pneumothorax. IMPRESSION: 1. Left arm PICC line tip in the left brachiocephalic vein. This needs to be repositioned. 2. Left lateral lung not included on the image. 3. Previous median sternotomy. RPTAT: QQ .Curry Bobo MD, MD Date Time Electronically viewed and signed by .Curry Bobo MD, MD on 12/09/2016 13:05 .R/
--- NOTE | 2016-12-09 13:07 | RADRPT ---
PROCEDURE: XR Chest. CLINICAL INDICATION: Check PICC line position. TECHNIQUE: Single frontal view. COMPARISON: Prior study done earlier the same day. FINDINGS: There is a left arm PICC line with the tip in the lower superior vena cava. The lungs are clear. The heart size is normal. There are sternal wires and mediastinal clips. There is no pleural effusion. There is no pneumothorax. IMPRESSION: 1. Left arm PICC line tip in satisfactory position. 2. Previous median sternotomy. 3. Otherwise normal chest radiograph. RPTAT: QQ .Curry Bobo MD, MD Date Time Electronically viewed and signed by .Curry Bobo MD, MD on 12/09/2016 13:06 .R/
--- NOTE | 2016-12-09 13:10 | CONS ---
Date/Time of Note Date/Time of Note DATE: 12/09/16 TIME: 13:09 Assessment/Plan Assessment/Plan Chief Complaint/Hosp Course No acute events overnight. Patient is alert, status post PICC placement this morning looks comfortable, denies pain, no fevers Microbiology: Left foot wound culture growing enterococcus species coag negative staph species and Serratia marcescens Antimicrobials: Vancomycin, cefepime Physical examination: Well-developed well-nourished elderly man who is alert in no distress. Head atraumatic normocephalic. Sclera nonicteric. Neck is supple. Chest rise symmetrical breath sounds clear bilaterally. S1-S2. Abdomen soft bowel tones present. Extremities with left foot dressing intact, wound VAC present. Assessment: 1. Left foot cellulitis, osteomyelitis, status post debridement on 12/06/2016 2. Diabetes 3. Chronic kidney disease 4. Peripheral arterial disease Plan: Remains stable, continue antibiotics, per discussion with podiatry team patient will need to complete 4-6 weeks antibiotics, wound care and wound VAC per podiatry. Discussed with staff Problems: Consultation Date/Type/Reason Admit Date/Time Dec 02, 2016 at 13:33 Initial Consult Date 12/03/16 Type of Consultation: ID Exam/Review of Systems Vital Signs Vitals Vital Signs Date Time Temp Pulse Resp B/P Pulse Ox O2 Delivery O2 Flow Rate FiO2 12/09/16 08:36 97.5 79 16 124/58 97 12/05/16 14:05 Room Air Intake and Output 12/08/16 12/08/16 12/09/16 15:00 23:00 07:00 Intake Total 300 ml 1710 ml 850 ml Output Total 1140 ml 1800 ml Balance 300 ml 570 ml -950 ml Results Result Diagram: 12/06/16 0447 12/09/16 0448 Results 24 hrs Laboratory Tests Test 12/08/16 16:58 12/08/16 21:23 12/09/16 04:48 12/09/16 07:41 Bedside Glucose 328 H 340 H 195 Blood Urea Nitrogen 19 Creatinine 1.11 Test 12/09/16 12:06 Bedside Glucose 150 Medications Medications Current Medications Aspirin (Halfprin) 81 mg DAILY PO Last administered on 12/09/16t 08:17; Admin Dose 81 MG; Start 12/03/16 at 09:00 Clopidogrel Bisulfate (plaVIX) 75 mg DAILY PO Last administered on 12/09/16 08 :17; Admin Dose 75 MG; Start 12/03/16 at 09:00 Atorvastatin Calcium (Lipitor) 10 mg DAILY@21 PO Last administered on 12/08/16 21:17; Admin Dose 10 MG; Start 12/02/16 at 21:00 Ondansetron HCl (Zofran Inj) 4 mg Q6H PRN IV NAUSEA AND/OR VOMITING; Start 12/02 at 15:30 Acetaminophen (Tylenol Tab) 650 mg Q6H PRN PO PAIN LEVEL 1-3 OR FEVER; Start at 15:30 Oxycodone/ Acetaminophen (Percocet (5/ 325)) 1 tab Q6H PRN PO MODERATE PAIN LEVEL 4-6 Last administered on 12/08/16 21:21; Admin Dose 1 TAB; Start 12/02/16 at 15:30 Morphine Sulfate (morphine) 2 mg Q4H PRN IV SEVERE PAIN LEVEL 7-10; Start at 15:30 Docusate Sodium (Colace) 100 mg Q12H PRN PO CONSTIPATION Last administered on 21:17; Admin Dose 100 MG; Start 12/02/16 at 15:30 Zolpidem Tartrate (Ambien) 5 mg QHS PRN PO SLEEP; Start 12/02/16 at 15:30 Miscellaneous Information 1 ea NOTE XX ; Start 12/02/16 at 16:00 Glucose (Glutose) 15 gm Q15M PRN PO DECREASED GLUCOSE; Start 12/02/16 at 16:00 Glucose (Glutose) 22.5 gm Q15M PRN PO DECREASED GLUCOSE; Start 12/02/16 at 16:00 Dextrose (D50w Syringe) 25 ml Q15M PRN IV DECREASED GLUCOSE; Start 12/02/16 at 16:00 Dextrose (D50w Syringe) 50 ml Q15M PRN IV DECREASED GLUCOSE; Start 12/02/16 at 16:00 Glucagon (Glucagen) 1 mg Q15M PRN IM DECREASED GLUCOSE; Start 12/02/16 at 16:00 Glucose (Glutose) 15 gm Q15M PRN BUCCAL DECREASED GLUCOSE; Start 12/02/16 at 16: 00 Famotidine (Pepcid) 20 mg HS PO Last administered on 12/08/16 21:18; Admin Dose 20 MG; Start 12/02/16 at 21:00 Ferrous Sulfate 325 mg 325 mg BID PO Last administered on 12/09/16 08:17; Admin Dose 325 MG; Start 12/02/16 at 21:00 Cefepime HCl (Maxipime 2gm/50 ml (Pmx)) 50 ml @ 100 mls/hr Q12 IVPB Last administered on 12/09/16 08:17; Admin Dose 100 MLS/HR; Start 12/02/16 at 21:00 Lactobacillus Acidophilus/ Rhamnosus (Culturelle) 1 cap BID PO Last administered on 12/09/16 08:17; Admin Dose 1 CAP; Start 12/02/16 at 21:00 Polyethylene Glycol (Miralax) 17 gm DAILY PO Last administered on 12/09/16 08: 17; Admin Dose 17 GM; Start 12/02/16 at 18:00 Collagenase (Santyl) 1 applic DAILY TOP Last administered on 12/05/16 09:43; Admin Dose 1 APPLIC; Start 12/03/16 at 09:00 Levothyroxine Sodium 50 mcg 50 mcg DAILY@06 PO Last administered on 12/09/16 05:53; Admin Dose 50 MCG; Start 12/04/16 at 06:00 Vancomycin HCl/ Sodium Chloride (Vancocin/NS) 150 ml @ 75 mls/hr Q12H IVPB Last administered on 12/09/16 03:15; Admin Dose 75 MLS/HR; Start 12/09/16 at 02 :00 Doxazosin Mesylate (Cardura) 4 mg HS PO Last administered on 12/08/16 21:18; Admin Dose 4 MG; Start 12/08/16 at 21:00 Insulin Glargine (Lantus) 12 unit QHS SC Last administered on 12/08/16 21:31; Admin Dose 12 UNIT; Start 12/08/16 at 21:00 Docusate Sodium (Colace) 100 mg BID PO Last administered on 12/09/16 08:17; Admin Dose 100 MG; Start 12/09/16 at 09:00 IV Flush (NS 10 ml) 10 ml PRN PRN IV IV PROTOCOL; Start 12/09/16 at 11:30 DAYANA TSE SENIOR SCHEDULER Dec 09, 2016 13:10
[2016-12-09] MEDS ORDERED: VAN500I IMPLANTED (15:08)
[2016-12-09] MEDS ORDERED: CEFE2FRO IV (15:08)
[2016-12-09 15:17] VITALS: BP 122/58; RESP 18
--- NOTE | 2016-12-09 15:35 | DS ---
Date/Time of Note Date/Time of Note DATE: 12/09/16 TIME: 15:22 Discharge Summary Admission/Discharge Info Admit Date/Time Dec 02, 2016 at 13:33 Discharge Date/Time 1. Left foot cellulitis, osteomyelitis, status post debridement on 12/06/2016, follow up with Dr. Solo, home health for woud care and iv antibiotics 2. Diabetes mellitus, follow up with PCP 3. Peripheral arterial disease, follow up with PCP 4. Hypertension, controlled 5. Chr CAD/ old [place]?/ CABG status. Stable continue risk factor modification 6. Rt second toe amputation status Patient Condition: Stable Hospital Course This is a 66-year-old male patient with a recent amputation of the left second through fifth toes and metatarsal head resections; open amputation with application of wound VAC. Patient was sent to hospital since his wound appears to have more foul-smelling discharge. Patient was seen and examined by ship un[employer] Dr. Solo who did revision amputation of his left foot with debridement on 12/05/2016. Wound VAC to be changed q48h. Non weight bearing on left foot at this time. Patient is seen by ID who recommends 4-6 weeks of iv cefepime and vancomycin. Patient will follow up with PCP and Dr. Solo, along with home wound care and iv antibiotics. Home Meds Active Scripts Cefepime Hcl/Dextrose, Iso-Osm (Cefepime 2 Gm Injection) 2 Gm/100 Ml Froz.piggy , 2 GM IV Q12H for 42 Days Prov:MEGHA SMITH MD 12/09/16 Vancomycin HCl (Vancomycin HCl) 500 Mg Vial.port, 750 MG IMPLANTED Q12H for 42 Days Prov:MEGHA SMITH MD 12/09/16 Reported Medications Clopidogrel Bisulfate (Clopidogrel) 75 Mg Tablet, 75 MG PO DAILY, #30 TAB 11/27/16 Metoprolol Tartrate* (Lopressor*) 100 Mg Tablet, 100 MG PO BID, #60 TAB 11/27/16 Amlodipine Besylate* (Amlodipine Besylate*) 10 Mg Tablet, 10 MG PO DAILY, #30 TAB 11/27/16 Simvastatin* (Zocor*) 20 Mg Tablet, 20 MG PO QHS, #30 TAB 11/27/16 Lisinopril* (Lisinopril*) 10 Mg Tablet, 10 MG PO DAILY, #30 TAB 11/27/16 Insulin Glargine* (Lantus*) 100 Unit/Ml Soln, 5 UNIT SC QHS, #1 VIAL 11/27/16 Aspirin (Low Dose Aspirin) 81 Mg Tablet., 81 MG PO DAILY, #30 TAB 11/27/16 Follow-up Plan Dr. Solo as instructed PCP in one week Home health with wound care and iv antibiotics Primary Care Provider Not On Staff Doctor Pending Labs Laboratory Tests Test 12/08/16 16:58 12/08/16 21:23 12/09/16 04:48 12/09/16 07:41 Bedside Glucose 328mg/dL (70-220) 340mg/dL (70-220) 195mg/dL (70-220) Blood Urea Nitrogen 19mg/dl (7-20) Creatinine 1.11mg/dl (0.61-1.24) Test 12/09/16 12:06 Bedside Glucose 150mg/dL (70-220) MEGHA SMITH MD Dec 09, 2016 15:32
--- NOTE | 2016-12-09 18:16 | PN ---
Date/Time of Note Date/Time of Note DATE: 12/09/16 TIME: 18:13 Assessment/Plan Lines/Catheters IV Catheter Type (from [facility]): PICC Line Cruz in Place (from [facility]): No Assessment/Plan Problems: (1) Lower extremity edema (2) Toe gangrene (3) Lactic acidosis Status: Acute (4) Wound infection Status: Acute (5) Osteomyelitis of left foot Status: Acute Qualifiers: Osteomyelitis type: unspecified type Qualified Code: M86.9 - Osteomyelitis of left foot, unspecified type (6) Left foot infection Status: Acute (7) Peripheral vascular disease Status: Chronic (8) Essential hypertension Status: Chronic (9) Non-insulin treated type 2 diabetes mellitus Status: Chronic (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 Assessment/Plan * patient may be discharged and follow up at the amputation prevention center on Friday at 1 PM * continue wound VAC and change every 48 hours * non weightbearing right foot * call or visit ER if increase in redness, swelling, pain, fever, chills, nausea , or vomiting Exam/Review of Systems Vital Signs Vitals Vital Signs Date Time Temp Pulse Resp B/P Pulse Ox O2 Delivery O2 Flow Rate FiO2 12/09/16 15:17 97.7 83 18 122/58 99 12/05/16 14:05 Room Air Intake and Output 12/08/16 12/08/16 12/09/16 15:00 23:00 07:00 Intake Total 300 ml 1710 ml 850 ml Output Total 1140 ml 1800 ml Balance 300 ml 570 ml -950 ml Results Result Diagram: 12/06/16 0447 12/09/16 0448 KHRIS FLORES DPM Dec 09, 2016 18:15
== END 2016-12-09 19:19 | disposition home health service (06) | DRG 857 ==
LOC: E/R 11:00 → PP2 13:33
PROVIDERS: ADMIT Internal Medicine; ATTEND Internal Medicine
PROC: 0QBP0ZZ Excision of Left Metatarsal, Open Approach (ICD-10-PCS; principal; 2016-12-05 12:00)
PROC: 02HV33Z Insertion of Infusion Device into Superior Vena Cava, Percutaneous Approach (ICD-10-PCS; 2016-12-09)
PROC: B548ZZA Ultrasonography of Superior Vena Cava, Guidance (ICD-10-PCS; 2016-12-09)
DX: T81.4XXA Infection following a procedure, initial encounter (principal); E11.52 Type 2 diabetes mellitus with diabetic peripheral angiopathy with gangrene; E87.2 Acidosis; M86.172 Other acute osteomyelitis, left ankle and foot; L03.116 Cellulitis of left lower limb; E11.621 Type 2 diabetes mellitus with foot ulcer; B95.2 Enterococcus as the cause of diseases classified elsewhere; E11.69 Type 2 diabetes mellitus with other specified complication; Z89.421 Acquired absence of other right toe(s); Z89.432 Acquired absence of left foot; I25.10 Atherosclerotic heart disease of native coronary artery without angina pectoris; Z95.1 Presence of aortocoronary bypass graft; E11.22 Type 2 diabetes mellitus with diabetic chronic kidney disease; E03.9 Hypothyroidism, unspecified; D50.9 Iron deficiency anemia, unspecified; E88.81 Metabolic syndrome and other insulin resistance; I12.9 Hypertensive chronic kidney disease with stage 1 through stage 4 chronic kidney disease, or unspecified chronic kidney disease; N18.9 Chronic kidney disease, unspecified; K59.00 Constipation, unspecified; N40.1 Benign prostatic hyperplasia with lower urinary tract symptoms; E11.42 Type 2 diabetes mellitus with diabetic polyneuropathy; B96.89 Other specified bacterial agents as the cause of diseases classified elsewhere
CPT/HCPCS: 36415; 36569; 71010; 71020; 73620; 76937; 80048; 80053; 80061; 80202; 82565; 82728; 82962; 83036; 83540; 83605; 83735; 84100; 84439; 84443; 84480; 84520; 85025; 85610; 85651; 85730; 86140; 87040; 87070; 87081; 93005; 93926; 96365; 96366; 96367; J0692; J1815; J2250; J2370; J2405; J2765; J2916; J3010; J3370; J7030